=== PATIENT | male | born 1935 | race Caucasian/White ===

== ENCOUNTER → 2017-05-15 | Outpatient (CLI) | payer MEDICARE ==
[~2017-05-15] MED LIST: ASPI325T PO; ASPI81 PO; ATOR10TA15 PO; CALC500 PO; CARD180C5 PO; COMMODE 3-IN-11 MIS; CPMMACHINE; D-20TAB3 PO; DOCU1CAP39 PO; ENOX40P SQ; FISH1200 PO; LACTCAP7 PO; LIPI10TA PO; LORA0.5T PO; LORTA5 PO; MELA10CA PO; OCUVTAB4 PO; PRESCAP5 PO; RAMI2.5C PO; TAMS0.4C4 PO; TAMS0.4C67 PO; TAMS5CAP PO; VITA100020 PO; VITA20003 PO; WALKER WHEELS/F1 MIS; Z.0.COMMODE-3:1; Z.0.CPM; Z.0.WALKERFRONT; ZANTTAB9 PO
== END ==
LOC: CPRE 11:21
PROVIDERS: ATTEND Orthopaedic Surgery
DX: Z00.8 Encounter for other general examination (principal)

== ENCOUNTER 2017-05-27 06:43 | Inpatient (IN) | payer MEDICARE ==
[~2017-05-27] VITALS: Ht 180.3 cm; Wt 65.9 kg
[2017-05-27] MEDS: SODIUM CHLOR 0.9% 1000 ML INJ 1,000 ML IV SCH ×2 (00:14→12:35)
[~2017-05-27 06:43] MED LIST changes: -ASPI325T PO; -ASPI81 PO; -CALC500 PO; -CARD180C5 PO; -COMMODE 3-IN-11 MIS; -CPMMACHINE; -DOCU1CAP39 PO; -ENOX40P SQ; -LACTCAP7 PO; -LIPI10TA PO; -LORTA5 PO; -MELA10CA PO; -PRESCAP5 PO; -RAMI2.5C PO; -TAMS0.4C67 PO; -TAMS5CAP PO; -VITA100020 PO; -VITA20003 PO; -WALKER WHEELS/F1 MIS; -Z.0.COMMODE-3:1; -Z.0.CPM; -Z.0.WALKERFRONT; -ZANTTAB9 PO
[2017-05-27] MEDS ORDERED: POVIDONE IODINE 7.5% SCRUB 118 ML BOTTLE TOPICAL SCH (07:45)
[2017-05-27] MEDS ORDERED: CHLORHEXIDINE GLUCONATE 2 % 1 PACK (2 CLOTHS) TOPICAL PRN (07:45)
[2017-05-27] MEDS ORDERED: POVIDONE IODINE 5% (ANTISEPSIS KIT) 4 APPLICATIONS EACH NARE PRN (07:45)
[2017-05-27] MEDS ORDERED: LACTATED RINGER'S 1000 ML IV PRN (07:45)
[2017-05-27] MEDS ORDERED: VANCOMYCIN 1000 MG/NS 250 ML (for <70 kg) IV SCH ×2 (07:45)
[2017-05-27] MEDS ORDERED: METOPROLOL TARTRATE 25 MG TAB PO PRN (07:45)
[2017-05-27] MEDS ORDERED: SODIUM CHLORID 0.9% 500 ML IV PRN (07:45)
[2017-05-27] MEDS ORDERED: DEXAMETHASONE SOD PHOS 20 MG/5 ML VIAL IV SCH (08:00)
[2017-05-27] MEDS ORDERED: TRANEXAMIC ACID INJ 659 MG in SODIUM CHLORIDE 0.9% INJ 100 ML IV SCH ×2 (08:00→13:00)
[2017-05-27] MEDS ORDERED: ROPIVACAINE PERI-ARTICULAR INJECTION. P-ARTICULR SCH ×5 (08:00)
[2017-05-27] MEDS ORDERED: ceFAZolin 2 GM PREMIX 50 ML ONE (08:12)
[2017-05-27] MEDS ORDERED: MIDAZOLAM HCL 2 MG/2 ML VIAL ONE (08:17)
[2017-05-27] MEDS ORDERED: BUPIVACAINE LIPOSOME PF 1.3% 20 ML VIAL ONE (08:17)
[2017-05-27] MEDS ORDERED: ceFAZolin 2 GM PREMIX 50 ML IV SCH (08:30)
[2017-05-27 09:10] VITALS: PULSE 62
[2017-05-27] MEDS ORDERED: ACETAMINOPHEN 1000 MG/100 ML 100 ML IV ONE (09:12)
[2017-05-27] MEDS ORDERED: FAMOTIDINE 20 MG/2 ML VIAL ONE (09:12)
[2017-05-27] MEDS ORDERED: GENTAMICIN SULFATE 80 MG/2 ML VIAL ONE (09:28)
--- NOTE | 2017-05-27 11:42 | PD.OP ---
cc: Otto Forde MD Operative Report Date of Surgery: May 27, 2017 Preoperative Diagnosis: Right knee severe osteoarthritis Postoperative Diagnosis: Same Procedure: Right total knee arthroplasty Anesthesia: Gen. and adductor canal block Surgeon: Otto Forde It Technical Support Specialist(s): STEFANIE Varela The surgical procedure was assisted by my Advanced Registered Nurse Practitioner. My ELECTROLYSIS NEEDLE OPERATOR presence was necessary throughout this case for the manipulation and positioning of the surgical extremity. My ELECTROLYSIS NEEDLE OPERATOR was assisting me throughout the duration of this procedure. The skill set of an Advance Registered Nurse Practitioner was medically necessary to complete this procedure. During the surgical case, the distance learning technician was working at the back table and the Advance Registered Nurse Practitioner was directly assisting me. Operation and Findings: IMPLANTS: DePuy Attune: Patella: size 38. Femur, posterior stabilized size 8. Tibia, rotating platform size 7. Tibial insert, rotating platform, posterior stabilized size 5 mm thickness. ESTIMATED BLOOD LOSS: 200 cc TOURNIQUET TIME: 38 minutes at 250 mmHg pressure. JUSTIFICATION FOR PROCEDURE: The patient has end-stage osteoarthritis to the knee. There is an attached conservative measures pathway form in the chart that describes the nonoperative measures that were undertaken prior to consideration of surgical management. The patient understood the risks and benefits of surgical management. See my office notes for further details PROCEDURE: The patient was brought back to the operative theatre. Adequate anesthesia was obtained. The patient received intravenous vancomycin and Ancef. The lower extremity was prepped and draped in the usual sterile fashion.The leg was exsanguinated, the tourniquet was raised. A standard anterior incision was performed followed by medial parapatellar arthrotomy was performed. End-stage arthritis was identified. Osteotomy of the patella was performed. We drilled holes for the patella. We trialed the patella component. We placed an intramedullary guide into the distal femur. We ultimately resected 13 mm off of the distal femur in 5 degrees of valgus. The remnants of the ACL and PCL were resected. Osteotomy of the proximal tibia was performed, resecting 5 mm off of the medial side. This was done with 3 degrees of posterior slope using an extramedullary guide. The distal end of the guide was placed in the mid aspect of the ankle. The femur was sized, and four chamfer cuts were completed in 3 of external rotation. We then cut the central box in the distal femur to replace the PCL. We resected the remnants of the menisci and removed osteophytes off of the femur and tibia. We then trialed the knee. We punched the tibia for the keel, and then used standard technique to cement in components. Excess cement was removed. We trialed the knee again and the final polyethylene thickness was chosen to provide extension to 0 degrees, and flexion of 140 degrees to gravity. The ligaments were appropriately balanced. Lateral release was necessary to obtain excellent patellofemoral tracking. The tourniquet was released and adequate hemostasis was obtained. An intra- articular injection of a ropivacaine cocktail was injected. The posterior knee was inspected for excess cement, which was removed. The final polyethylene was put into position after thorough irrigation. We then closed deep fascia with a #2 Stratafix followed by skin with 2-0 Vicryl followed by son. Postop plan is to weight-bear as tolerated. DVT prophylaxis will be performed with Alie, ERIC dukes, early mobilization, and Lovenox followed by aspirin. Otto Forde MD May 27, 2017 11:42
[2017-05-27] MEDS ORDERED: BISACODYL 10 MG SUPP RECTAL PRN (11:45)
[2017-05-27] MEDS ORDERED: MORPHINE SULFATE 4 MG/ML INJ IV PUSH PRN (11:45)
[2017-05-27] MEDS ORDERED: Post-op Orders (for Pharmacy) XX ONE (11:45)
[2017-05-27] MEDS ORDERED: NALOXONE HCL 0.4 MG/ML AMP IV PUSH PRN (11:45)
[2017-05-27] MEDS ORDERED: diphenhydrAMINE HCL 50 MG/ML VIAL IV PUSH PRN (11:45)
[2017-05-27] MEDS ORDERED: ONDANSETRON HCL 4 MG/2 ML VIAL IVP PRN (11:45)
[2017-05-27] MEDS ORDERED: ALUMINUM/MAGNESIUM/SIMETH 30 ML CUP PO PRN (11:45)
[2017-05-27] MEDS ORDERED: ACETAMINOPHEN/HYDROcodone 325 MG/5 MG TAB PO PRN (11:45)
[2017-05-27] MEDS ORDERED: SUGAMMADEX SODIUM 200 MG/2 ML VIAL IV PUSH ONE (11:59)
[2017-05-27] MEDS ORDERED: GLYCOPYRROLATE 1 MG/5 ML SYRINGE IV PUSH ONE (12:00)
[2017-05-27] MEDS ORDERED: PHENYLEPH/NS 1000 MCG/10 ML SYR IV ONE (12:00)
[2017-05-27] MEDS ORDERED: LIDOCAINE HCL 1% PF 5 ML SYRINGE OTHER ONE (12:00)
[2017-05-27] MEDS ORDERED: NEOSTIGMINE 5 MG/5 ML SYRINGE IV PUSH ONE (12:00)
[2017-05-27] MEDS ORDERED: LACTATED RINGER'S 1000 ML INJ 1,000 ML IV ONE (12:00)
[2017-05-27] MEDS ORDERED: PROPOFOL 200 MG/20 ML AMP IV ONE (12:00)
[2017-05-27] MEDS ORDERED: ROCURONIUM INJ 50 MG/5 ML SYRINGE IV PUSH ONE (12:00)
[2017-05-27] MEDS ORDERED: ePHEDrine/NS 25 MG/5 ML SYRINGE IV ONE (12:00)
[2017-05-27] MEDS ORDERED: ONDANSETRON HCL 4 MG/2 ML VIAL IV ONE (12:00)
[2017-05-27] MEDS ORDERED: DO NOT ADM ANY ANTICOAGULANT DRUGS PRN (12:07)
--- NOTE | 2017-05-27 13:17 | RADRPT ---
EXAM DATE/TIME: 05/27/2017 12:34 [facility] COMPARISON: No previous studies available for comparison. INDICATIONS : Post-op right knee. MEDICAL HISTORY : None. SURGICAL HISTORY : Left knee surgery. ENCOUNTER: Initial ACUITY: 1 day PAIN SCORE: 0/10 LOCATION: Bilateral chest FINDINGS: 2 views of the right knee status post total knee arthroplasty. The hardware is intact. The osseous structures are in good alignment. Soft tissue gas is seen anteriorly. CONCLUSION: Expected postsurgical changes status post total knee arthroplasty. Yariel Mckeon MD on May 27, 2017 at 13:15 Board Certified Radiologist. This report was verified electronically.
--- NOTE | 2017-05-27 15:37 | HHI.FF ---
Face to Face Verification Diagnosis: (1) Primary localized osteoarthrosis, lower leg (2) Status post total knee replacement, right Physical Therapy Gait training, Transfer training, bed to chair Knee: Total knee Right LE Weight Bearing: WB as tolerated Right LE Range of Motion: Active ROM Nursing Nursing: Olga naqvi Dressing Changes: Do not change dressing Additional Instructions First dressing change in the office I have seen patient Gui Headley Jr Yang on 05/27/17. My clinical findings support the need for the requested home health care services because: Limited ability to care for self High risk of falls I certify that my clinical findings support that this patient is homebound because: Post-op weakness Unsteady gait/balance [place] May 27, 2017 15:37
--- NOTE | 2017-05-27 15:37 | HHI.DCPOC ---
Discharge Care Plan Diagnosis: (1) Primary localized osteoarthrosis, lower leg (2) Status post total knee replacement, right Your Health Problems Are: Difficulty with ADL Goals to Promote Your Health * To prevent worsening of your condition and complications * To maintain your health at the optimal level Directions to Meet Your Goals Take your medications as prescribed Follow your dietary instruction Follow activity as directed Keep your appointments as scheduled Take your immunizations and boosters as scheduled If your symptoms worsen call your PCP, if no PCP go to Urgent Care Center or Emergency Room Smoking is Dangerous to Your Health. Avoid second hand smoke Call the 24-hour hour crisis hotline for domestic abuse at [place] May 27, 2017 15:37
[2017-05-27] MEDS ORDERED: CPMMACHINE (15:39)
[2017-05-27] MEDS ORDERED: WALKER WHEELS/F1 MIS (15:39)
[2017-05-27] MEDS ORDERED: COMMODE 3-IN-11 MIS (15:39)
[2017-05-27 16:23] LABS: CALCIUM 8.1 MG/DL (8.5-10.1); CREATININE 1.04 MG/DL (0.60-1.30)
[2017-05-27 16:33] LABS: AUTOMATED NEUTROPHIL # 6.1 TH/MM3 (1.8-7.7); BASOPHIL % 0.1 % (0.0-2.0); HEMATOCRIT 37.3 % (39.0-51.0); LYMPH % 4.8 % (9.0-44.0); LYMPHOCYTE # 0.3 TH/MM3 (1.0-4.8); MEAN CELL VOLUME 97.2 FL (80.0-100.0); MEAN CORPUSCULAR HEMOGLOBIN 33.9 PG (27.0-34.0); MEAN CORPUSCULAR HGB CONC 34.9 % (32.0-36.0); MEAN PLATELET VOLUME 9.2 FL (7.0-11.0); MONO % 0.7 % (0.0-8.0); NEUT % 94.4 % (16.0-70.0); PLATELET COUNT 105 TH/MM3 (150-450); RED BLOOD COUNT 3.84 MIL/MM3 (4.50-5.90); RED CELL DISTRIBUTION WIDTH 13.7 % (11.6-17.2); WHITE BLOOD COUNT 6.5 TH/MM3 (4.0-11.0)
[2017-05-27] MEDS ORDERED: MAGNESIUM SULFATE 1 GM PREMIX 200 ML ONE (16:46)
[2017-05-27] MEDS: MAGNESIUM SULFAT 1 GM PREMIX 100 ML x2 bags IV SCH ×2 (16:47→17:50)
[2017-05-27 17:30] VITALS: BP 161/82; PULSE 73; RESP 18; TEMP 95.6; O2SAT 99
[2017-05-27 19:09] VITALS: PULSE 84
[2017-05-27 20:02] VITALS: PULSE 88
[2017-05-27] MEDS: TAMSULOSIN HCL 0.4 MG CAP PO SCH (20:03)
[2017-05-27] MEDS: ATORVASTATIN 10 MG TAB PO SCH (20:03)
[2017-05-27 20:35] VITALS: BP 150/67; PULSE 81; RESP 18; TEMP 96.9; O2SAT 99
[2017-05-27] MEDS ORDERED: LORazepam 0.5 MG TAB PO PRN (21:00)
[2017-05-27] MEDS: ACETAMINOPHEN/HYDROcodone 325 MG/5 MG TAB PO PRN (22:06)
[2017-05-27 23:52] VITALS: BP 121/68; PULSE 55; RESP 18; TEMP 96.7; O2SAT 98
[2017-05-28] VITALS (12 sets, daily range): BP systolic 119–153; BP diastolic 63–72; PULSE 52–101; RESP 16–18; TEMP 96.7–98.3; O2SAT 95–96
[2017-05-28] MEDS: ACETAMINOPHEN/HYDROcodone 325 MG/5 MG TAB PO PRN ×2 (03:17→09:16)
[2017-05-28 05:45] LABS: HEMOGLOBIN 10.3 GM/DL (13.0-17.0); MEAN CELL VOLUME 96.6 FL (80.0-100.0); MEAN CORPUSCULAR HEMOGLOBIN 33.2 PG (27.0-34.0); MEAN CORPUSCULAR HGB CONC 34.4 % (32.0-36.0); MEAN PLATELET VOLUME 8.9 FL (7.0-11.0); PLATELET COUNT 103 TH/MM3 (150-450); RED CELL DISTRIBUTION WIDTH 13.9 % (11.6-17.2); WHITE BLOOD COUNT 11.6 TH/MM3 (4.0-11.0)
[2017-05-28] MEDS: SODIUM CHLOR 0.9% 1000 ML INJ 1,000 ML IV SCH ×3 (07:39→22:50)
[2017-05-28] MEDS ORDERED: DEXAMETHASONE SOD PHOS 20 MG/5 ML VIAL IV ONE (07:45)
--- NOTE | 2017-05-28 08:04 | EKG ---
Date Performed: 05/27/2017 Time Performed: 15:37:49 PTAGE: 81 years EKG: Sinus rhythm WITH FREQUENT VENTRICULAR PREMATURE COMPLEXES ABNORMAL RHYTHM ECG NO PREVIOUS TRACING DOCTOR: Marion Saucedo Interpretating Date/Time 05/28/2017 08:01:54
[2017-05-28] MEDS: MAGNESIUM HYDROXIDE SUSP 30 ML CUP PO PRN (08:18)
[2017-05-28] MEDS ORDERED: METOPROLOL TARTRATE 25 MG TAB PO ONE (10:10)
[2017-05-28] MEDS ORDERED: PILL SPLITTER OTHER PRN (10:15)
[2017-05-28] MEDS ORDERED: ENOXAPARIN SODIUM 40 MG/0.4 ML SYRINGE SQ SCH (11:00)
--- NOTE | 2017-05-28 11:30 | PD.CONS ---
HPI Service [facility] Hospitalists Consult Requested By Dr. Forde. Reason for Consult New onset of frequent PVCs. Primary Care Physician Clive Pandya M.D. Diagnoses: History of Present Illness This is an 81-year-old male with past medical history significant for osteoarthritis with history of previous left knee total replacement, BPH, hiatal hernia, lumbar stenosis who presents to [facility] for elective right total knee arthroplasty. The patient underwent a right total knee arthroplasty on May 27, 2017. I am being consulted since the patient has new frequent PVCs and also reported bigeminy and a short run of nonsustained V. tach. The patient denies any chest pain, shortness of breath, palpitations, dizziness, diaphoresis at the moment of this interview. States that knee pain is well controlled. Patient also denies nausea vomiting or abdominal pain. Review of Systems As per HPI, other systems reviewed by me and negative. Past Family Social History Allergies: Coded Allergies: penicillin G (Unverified Allergy, Severe, RASH, 05/15/17) Past Medical History 1. BPH. 2. Lumbar stenosis. 3. Hiatal hernia. 4. Osteoarthritis. Past Surgical History 1. Left knee replacement on June 13, 2015. Reported Medications Reported Meds & Active Scripts Active Walker with Front Wheels (Device) 1 Mis Mis Ea .XX DIRECTED CPM-Continuous Passive Motion Machine 1 Ea Device Ea .XX DIRECTED Commode 3-in-1 (Device) 1 Mis Mis Ea .XX DIRECTED Reported Fish Oil 1200 mg ([place]-3 Fatty Acids) 360 Mg-1,200 Mg Cap 1 Tab PO DAILY Tamsulosin (Tamsulosin HCl) 0.4 Mg Cap 0.4 Mg PO HS Preservision Areds (Multiple Vitamins W/ Minerals) 1 Tab 1 Tab PO DAILY Lorazepam 0.5 Mg Tab 0.5 Mg PO HS PRN D-2000 Maximum Strength (Cholecalciferol) 2,000 Unit Tab 2,000 Units PO DAILY Atorvastatin (Atorvastatin Calcium) 10 Mg Tab 10 Mg PO HS Active Ordered Medications Current Medications Medications (Trade) Dose Ordered Sig/Fili Route Start Time Stop Time Status Last Admin Lactated Ringer's 1,000 ml @ 30 mls/hr Q24H PRN IV 05/27/17 07:45 05/30/17 07:44 05/27/17 07:41 Sodium Chloride 500 ml @ 30 mls/hr [id number] PRN IV 05/27/17 07:45 05/30/17 07:44 (Lopressor) 25 mg LOGGING OPERATIONS INSPECTOR PRN PO 05/27/17 07:45 05/30/17 07:44 (Betadine 5% Antisepsis Kit) 1 applic LOGGING OPERATIONS INSPECTOR PRN EACH NARE 05/27/17 07:45 05/30/17 07:44 05/27/17 07:41 (Chlorhexidine 2% Cloth) 3 pack LOGGING OPERATIONS INSPECTOR PRN TOPICAL 05/27/17 07:45 05/30/17 07:44 05/27/17 07:41 (Betadine 7.5% Scrub) 1 applic ONCE TOPICAL 05/27/17 07:45 05/30/17 07:44 Vancomycin HCl 1000 mg/Sodium Chloride 250 ml @ 250 mls/hr LOGGING OPERATIONS INSPECTOR IV 05/27/17 07:45 05/30/17 07:44 05/27/17 09:34 Cefazolin Sodium/ Dextrose 50 ml @ 100 mls/hr LOGGING OPERATIONS INSPECTOR IV 05/27/17 08:30 05/30/17 08:29 05/27/17 10:05 (Lipitor) 10 mg HS PO 05/27/17 21:00 05/27/17 20:03 (Ativan) 0.5 mg HS PRN PO 05/27/17 21:00 (Flomax) 0.4 mg HS PO 05/27/17 21:00 05/27/17 20:03 Sodium Chloride 1,000 ml @ 100 mls/hr Q10H IV 05/27/17 11:39 05/27/17 00:14 (Lovenox Inj) 40 mg Q24H SQ 05/28/17 11:00 06/06/17 11:01 05/28/17 10:31 (Wilson 5-325 Mg) 1 tab Q4H PRN PO 05/27/17 11:45 05/28/17 09:16 (Wilson 5-325 Mg) 2 tab Q4H PRN PO 05/27/17 11:45 (Theragran M Tab) 1 tab BID PO 05/28/17 21:00 07/27/17 20:59 (Zofran Inj) 4 mg Q6H PRN IVP 05/27/17 11:45 (Colace) 100 mg BID PO 05/28/17 21:00 (Mag-Al Plus Susp Liq) 30 ml Q6H PRN PO 05/27/17 11:45 (Ambien) 5 mg HS PRN PO 05/27/17 21:00 (Dulcolax Supp) 10 mg DAILY PRN RECTAL 05/27/17 11:45 (Milk Of Magnesia Liq) 30 ml DAILY PRN PO 05/27/17 11:45 05/28/17 08:18 (Narcan Inj) 0.4 mg UNSCH PRN IV PUSH 05/27/17 11:45 (Benadryl Inj) 25 mg Q6H PRN IV PUSH 05/27/17 11:45 (Morphine Inj) 2 mg Q3H PRN IV PUSH 05/27/17 11:45 (Pill Splitter) 1 ea UNSCH PRN OTHER 05/28/17 10:15 Family History Patient states that his father had 3 MIs between the age of 60 and 75. However , he states that he from complications due to diabetes and gangrene. Social History The patient is a former smoker he quit smoking cigarettes many years ago. The patient denies alcohol intake. Patient also denies illicit drug use. Physical Exam Vital Signs Vital Signs Date Time Temp Pulse Resp B/P (MAP) Pulse Ox O2 Delivery O2 Flow Rate FiO2 05/28/17 10:45 88 05/28/17 08:56 101 05/28/17 08:00 97.8 65 18 119/66 (83) 96 05/28/17 08:00 97 05/28/17 04:04 18 05/28/17 03:25 97.2 61 18 153/72 (99) 95 05/28/17 00:03 91 05/27/17 23:52 96.7 55 18 121/68 (85) 98 05/27/17 22:02 Room Air 05/27/17 20:35 96.9 81 18 150/67 (94) 99 05/27/17 20:02 88 05/27/17 20:02 88 05/27/17 19:09 84 05/27/17 19:09 84 05/27/17 17:30 95.6 73 18 161/82 (108) 99 05/27/17 17:00 97.5 82 14 144/70 (94) 98 Room Air 05/27/17 16:00 92 14 165/75 (105) 97 05/27/17 15:00 93 18 139/64 (89) 95 05/27/17 14:00 73 21 143/63 (89) 95 05/27/17 13:30 76 18 142/69 (93) 96 05/27/17 13:25 97.5 05/27/17 13:25 97.5 05/27/17 13:15 69 15 133/73 (93) 93 05/27/17 13:00 69 11 133/71 (91) 94 05/27/17 12:45 66 11 133/68 (89) 95 05/27/17 12:30 71 15 138/67 (90) 97 05/27/17 12:15 66 10 133/72 (92) 99 05/27/17 12:11 67 13 148/78 (101) 95 Simple Mask 6 Physical Exam GENERAL: This is a well-nourished, well-developed patient, in no apparent distress. SKIN: No rashes, ecchymoses or lesions. Cool and dry. HEAD: Atraumatic. Normocephalic. No temporal or scalp tenderness. EYES: Pupils equal round and reactive. Extraocular motions intact. No scleral icterus. No injection or drainage. ENT: Nose without bleeding, purulent drainage or septal hematoma. Throat without erythema, tonsillar hypertrophy or exudate. Uvula midline. Airway patent. NECK: Trachea midline. No JVD or lymphadenopathy. Supple, nontender, no meningeal signs. CARDIOVASCULAR: Regular rate and rhythm without murmurs, gallops, or rubs. RESPIRATORY: Clear to auscultation. Breath sounds equal bilaterally. No wheezes , rales, or rhonchi. GASTROINTESTINAL: Abdomen soft, non-tender, nondistended. No hepato-splenomegaly , or palpable masses. No guarding. MUSCULOSKELETAL: Extremities without clubbing, cyanosis, or edema. No calf tenderness. Negative Homans sign bilaterally. Dressing is C/D/I. 2+ pedal pulse. NEUROLOGICAL: Awake and alert. Cranial nerves II through XII intact. Motor and sensory grossly within normal limits. Five out of 5 muscle strength in all muscle groups. Normal speech. Laboratory Laboratory Tests Test 05/27/17 15:40 05/28/17 04:41 05/28/17 10:37 White Blood Count 6.5 11.6 Red Blood Count 3.84 3.10 Hemoglobin 13.0 10.3 Hematocrit 37.3 30.0 Mean Corpuscular Volume 97.2 96.6 Mean Corpuscular Hemoglobin 33.9 33.2 Mean Corpuscular Hemoglobin Concent 34.9 34.4 Red Cell Distribution Width 13.7 13.9 Platelet Count 105 103 Mean Platelet Volume 9.2 8.9 Neutrophils (%) (Auto) 94.4 Lymphocytes (%) (Auto) 4.8 Monocytes (%) (Auto) 0.7 Eosinophils (%) (Auto) 0.0 Basophils (%) (Auto) 0.1 Neutrophils # (Auto) 6.1 Lymphocytes # (Auto) 0.3 Monocytes # (Auto) 0.0 Eosinophils # (Auto) 0.0 Basophils # (Auto) 0.0 CBC Comment DIFF FINAL Differential Comment Blood Urea Nitrogen 16 Creatinine 1.04 Random Glucose 239 Calcium Level 8.1 Sodium Level 139 Potassium Level 4.1 Chloride Level 105 Carbon Dioxide Level 27.0 Anion Gap 7 Estimat Glomerular Filtration Rate 69 Magnesium Level 1.8 Result Diagram: 05/28/17 0441 05/27/17 1540 Imaging Last Impressions Knee X-Ray 05/27/17 1139 Signed Impressions: Service Date/Time: Saturday, May 27, 2017 12:34 - CONCLUSION: Expected postsurgical changes status post total knee arthroplasty. Yariel Mckeon MD Assessment and Plan Problem List: (1) Status post total knee replacement, right ICD Code: Z96.651 - Presence of right artificial knee joint Plan: Management as per orthopedic surgery. (2) Cardiac dysrhythmia ICD Code: I49.9 - Cardiac arrhythmia, unspecified Plan: Review of the EKG on admission which showed sinus rhythm with frequent PVCs with a ventricular rate of 94. QTc 432. Telemetry reviewed by me shows bigeminy and a short run of nonsustained V. tach. The patient is asymptomatic. Consult cardiology. Check 2D echocardiogram. Check TSH and electrolytes. (3) BPH (benign prostatic hyperplasia) ICD Code: N40.0 - Benign prostatic hyperplasia without lower urinary tract symptoms Plan: Patient states he had an episode of urinary retention yesterday after surgical procedure. States this has resolved. Continue tamsulosin 0.4 mg p.o. daily. (4) Hyperlipidemia ICD Code: E78.5 - Hyperlipidemia, unspecified Status: Chronic Plan: Continue statin. (5) Hyperglycemia ICD Code: R73.9 - Hyperglycemia, unspecified Plan: Blood sugars are severely elevated. Suspect diabetes. Will check hemoglobin A1c. Place the patient on SSI with insulin NovoLog. (6) MARGARITO (acute kidney injury) ICD Code: N17.9 - Acute kidney failure, unspecified Plan: Creatinine on presentation 1.04. Creatinine elevated to 1.[address] the patient IV fluids, check renal ultrasound and a postvoid residual volume with bladder scan. Monitor BUN and creatinine, history I's and O's, avoid nephrotoxins. Assessment and Plan DVT prophylaxis: Lovenox 40 mg subcu daily as per orthopedic surgery. The patient is not medically clear to be discharged. Code Status Full code Discussed Condition With Patient, RN. Problem Qualifiers (1) Cardiac dysrhythmia: Qualified Codes: I49.8 - Other specified cardiac arrhythmias (2) BPH (benign prostatic hyperplasia): Qualified Codes: N40.0 - Benign prostatic hyperplasia without lower urinary tract symptoms (3) Hyperlipidemia: Qualified Codes: E78.5 - Hyperlipidemia, unspecified Nader Gray MD May 28, 2017 11:30
[2017-05-28 11:44] LABS: BICARBONATE 27.6 MEQ/L (21.0-32.0); CALCIUM 8.1 MG/DL (8.5-10.1); CREATININE 1.36 MG/DL (0.60-1.30); MAGNESIUM 2.3 MG/DL (1.5-2.5); PHOSPHORUS 2.9 MG/DL (2.5-4.9)
--- NOTE | 2017-05-28 11:48 | PD.ORT.PN ---
Subjective Post Op Day #: 1 Subjective Remarks Patient is resting in bed using his CPM. Patient reports minimal pain to the right knee. Patient states he has had some cardiac irregular beats and spoke with the hospitalist about it. Patient is scheduled to have some further testing today to better evaluate the heart. Patient currently on Tele. Patient denies CP or SOB currently. Objective Vitals Vital Signs Date Time Temp Pulse Resp B/P (MAP) Pulse Ox O2 Delivery O2 Flow Rate FiO2 05/28/17 10:45 88 05/28/17 08:56 101 05/28/17 08:00 97.8 65 18 119/66 (83) 96 05/28/17 08:00 97 05/28/17 04:04 18 05/28/17 03:25 97.2 61 18 153/72 (99) 95 05/28/17 00:03 91 05/27/17 23:52 96.7 55 18 121/68 (85) 98 05/27/17 22:02 Room Air 05/27/17 20:35 96.9 81 18 150/67 (94) 99 05/27/17 20:02 88 05/27/17 20:02 88 05/27/17 19:09 84 05/27/17 19:09 84 05/27/17 17:30 95.6 73 18 161/82 (108) 99 05/27/17 17:00 97.5 82 14 144/70 (94) 98 Room Air 05/27/17 16:00 92 14 165/75 (105) 97 05/27/17 15:00 93 18 139/64 (89) 95 05/27/17 14:00 73 21 143/63 (89) 95 05/27/17 13:30 76 18 142/69 (93) 96 05/27/17 13:25 97.5 05/27/17 13:25 97.5 05/27/17 13:15 69 15 133/73 (93) 93 05/27/17 13:00 69 11 133/71 (91) 94 05/27/17 12:45 66 11 133/68 (89) 95 05/27/17 12:30 71 15 138/67 (90) 97 05/27/17 12:15 66 10 133/72 (92) 99 05/27/17 12:11 67 13 148/78 (101) 95 Simple Mask 6 I/O 05/27/17 05/27/17 05/27/17 05/28/17 05/28/17 05/28/17 07:00 15:00 23:00 07:00 15:00 23:00 Intake Total 2100 ml 1120 ml 460 ml Output Total 500 ml 1100 ml Balance 1600 ml 20 ml 460 ml Intake Oral 400 ml 920 ml 360 ml IV Total 200 ml 100 ml Other 1700 ml Output Urine Total 300 ml 1100 ml Estimated Blood Loss 200 ml # Voids 3 # Bowel Movements 0 0 Result Diagram: 05/28/17 0441 05/27/17 1540 Procedures Right TKA Objective Remarks Dressing is C/D/I. EHL/TA/G intact. 2+ pedal pulse. Calf is soft and nontender. + SILT. Patient on cardiac monitory. Patient has had runs of trigeminy. Assessment & Plan Ortho Post Op Day #: 1 Problem List: Assessment and Plan POD #1: Right TKA 1. WBAT RLE 2. Lovenox followed by ASA for DVT prophylaxis 3. Ice to the right knee PRN 4. Stable for discharge once medically cleared and cleared by cardiology. Patient to have echo and additional labs. Patient to see park manager. Patient will require at least one more night of observation. 5. F/U in the office with Dr. Forde or STEFANIE Neil as previously scheduled. [place] May 28, 2017 11:48
[2017-05-28] MEDS ORDERED: DEXTROSE 50% IN WATER 50 ML VIAL(D50) IV PUSH PRN (13:30)
[2017-05-28] MEDS ORDERED: GLUCAGON 1 MG/ML VIAL OTHER PRN (13:30)
--- NOTE | 2017-05-28 15:22 | RADRPT ---
EXAM DATE/TIME: 05/28/2017 14:33 [facility] COMPARISON: No previous studies available for comparison. INDICATIONS : Increased Bun and Creatinine. Left flank pain. MEDICAL HISTORY : Renal disease. SURGICAL HISTORY : Umbilical hernia. Appendectomy. Left partial knee. Left rotator cuff repair. Right knee replaceme nt. ENCOUNTER: Initial ACUITY: 1 day PAIN SCORE: 04/15 LOCATION: Bilateral flank MEASUREMENTS: RIGHT KIDNEY: 11.7 x 4.9 x 6.3 cm LEFT KIDNEY: 12.1 x 5.0 x 6.3 cm FINDINGS: RIGHT KIDNEY: There is moderate dilation of the collecting system and extrarenal pelvis. LEFT KIDNEY: There is moderate dilation of the collecting system and extrarenal pelvis. Dominant cyst in the uppe r pole measuring 5.0 x 4.1 cm. BLADDER: Markedly distended urinary bladder. Prevoid volume is estimated at 604 mL and post void volume is es timated at 641 mL. CONCLUSION: 1. Dilation of the collecting system bilaterally suggesting moderate bilateral hydronephrosis. 2. Significant postvoid residual with no change in bladder volume pre-and postvoid. Yariel Mckeon MD on May 28, 2017 at 15:18 Board Certified Radiologist. This report was verified electronically.
[2017-05-28] MEDS: INSULIN ASPART SUPPLEMENTAL SCALE SQ SCH ×2 (17:05→21:17)
--- NOTE | 2017-05-28 19:09 | ECHRPT ---
Indication: pvc's CONCLUSIONS Normal left ventricular size. The left ventricular systolic function is moderately reduced with an estimated ejection fraction in the range of 40-45%. mild to mod mitral valve regurgitation. There is mild to mod tricuspid valve regurgitation. BP: / HR: Rhythm: MEASUREMENTS (Male / Female) Normal Values Technical Quality:Good 2D ECHO LV Diastolic Diameter PLAX 5.4 cm 4.2 - 5.9 / 3.9 - 5.3 cm LV Systolic Diameter PLAX 4.5 cm IVS Diastolic Thickness 1.3 cm 0.6 - 1.0 / 0.6 - 0.9 cm LVPW Diastolic Thickness 1.1 cm 0.6 - 1.0 / 0.6 - 0.9 cm LV Relative Wall Thickness 0.4 RV Internal Dim ED PLAX 2.8 cm M-MODE Aortic Root Diameter MM 3.3 cm LA Systolic Diameter MM 3.5 cm LA Ao Ratio MM 1.1 AV Cusp Separation MM 2.1 cm DOPPLER TR Peak Velocity 259.0 cm/s TR Peak Gradient 26.8 mmHg Right Atrial Pressure 10.0 mmHg Pulmonary Artery Systolic Pressu 36.8 mmHg Right Ventricular Systolic Press 36.8 mmHg FINDINGS LEFT VENTRICLE Normal left ventricular size. The left ventricular systolic function is moderately reduced with an estimated ejection fraction in the range of 40-45%. RIGHT VENTRICLE Normal right ventricular size and systolic function. LEFT ATRIUM The left atrial size is normal. RIGHT ATRIUM The right atrial size is normal. ATRIAL SEPTUM Normal atrial septal thickness without atrial level shunting by limited color doppler interrogation. AORTA The aortic root and proximal ascending aorta are normal in size on limited imaging. MITRAL VALVE Structurally normal mitral valve. [id number] mitral valve regurgitation. AORTIC VALVE Trileaflet aortic valve. No aortic valve stenosis or regurgitation. TRICUSPID VALVE Structurally normal tricuspid valve. There is mild tricuspid valve regurgitation. PULMONARY VALVE No pulmonary valve regurgitation or stenosis. VESSELS The inferior vena cava is normal in size. PERICARDIUM No pericardial effusion. Richar Campbell MD, FACC, [facility] (Electronically Signed) Final Date:28 May 2017 19:08
[2017-05-28] MEDS: MULTIVITAMINS/MINERALS THERAPEUTIC TAB PO SCH (21:16)
[2017-05-28] MEDS: ATORVASTATIN 10 MG TAB PO SCH (21:16)
[2017-05-28] MEDS: DOCUSATE SODIUM 100 MG CAP PO SCH (21:16)
[2017-05-28] MEDS: TAMSULOSIN HCL 0.4 MG CAP PO SCH (21:16)
[2017-05-29] VITALS (23 sets, daily range): BP systolic 107–152; BP diastolic 48–72; PULSE 41–102; RESP 17–18; TEMP 97.4–98.6; O2SAT 94–98
[2017-05-29 07:01] LABS: HEMATOCRIT 24.3 % (39.0-51.0); HEMOGLOBIN 8.5 GM/DL (13.0-17.0); MEAN CELL VOLUME 98.1 FL (80.0-100.0); MEAN CORPUSCULAR HEMOGLOBIN 34.3 PG (27.0-34.0); MEAN PLATELET VOLUME 9.3 FL (7.0-11.0); PLATELET COUNT 78 TH/MM3 (150-450); RED BLOOD COUNT 2.48 MIL/MM3 (4.50-5.90); RED CELL DISTRIBUTION WIDTH 14.2 % (11.6-17.2); WHITE BLOOD COUNT 7.9 TH/MM3 (4.0-11.0)
--- NOTE | 2017-05-29 07:02 | MB ---
cc: KENRICK HORNE M.D. DATE OF CONSULTATION 05/28/2017 REASON FOR CONSULTATION Gui is a very pleasant 81 year-old gentleman with a history of hypertension, otherwise no significant past cardiovascular history. He underwent knee surgery with Dr. Johnson on May 27. Postoperatively, he was found to have frequent PVCs and runs of wide complex tachycardia. The patient is completely asymptomatic. Denies any chest pain, fever, chills, cough, GI/ bleeding, PND, orthopnea, syncope or dizziness. He underwent right total knee arthroplasty May 30, 2017. PAST MEDICAL HISTORY past medical history includes: 1. BPH 2. Lumbar stenosis 3. Hiatal hernia 4. Osteoarthritis 5. Left knee replacement June 13, 2015 MEDICATIONS PRIOR TO ADMISSION 1. Fish oil 2. Tamsulosin 3. PreserVision 4. Lorazepam 5. D-2000 6. Atorvastatin 10 at bedtime Medications in the hospital: 1. Docusate 100 b.i.d. 2. Multivitamins 3. Lovenox 40 subcu q.24 h 4. Atorvastatin 10 at bedtime 5. He was given one dose of Metoprolol 12.5. PHYSICAL EXAMINATION Pulse ranging between 52 and 101, blood pressure 133/63, respiratory rate 16, temperature 96.7, sats 95% on room air. GENERAL: He is alert and oriented x3 in no distress. NECK: Supple. No JVD. No bruit. CARDIOVASCULAR: S1, S2. No murmurs, rubs or gallops. LUNGS: Clear to auscultation bilaterally. ABDOMEN: Soft, nontender, nondistended with positive bowel sounds. EXTREMITIES: No extremity edema. LABORATORY DATA White count 1.6, hemoglobin of 10.3, hematocrit 30.0, platelet count 103. Sodium 139, potassium 4.1, chloride 105, bicarb 27.0, BUN 60 creatinine 1.04, magnesium is 1.8 corrected to 2.3. TSH is 0.592. Troponin is 0.03. The renal ultrasound done showed dilation of the collecting system bilaterally suggesting moderate bilateral hydronephrosis, significant post residual with no change in bladder volume pre and postvoid. EKG from May 27 shows normal sinus rhythm at 94 beats per minute with frequent PVCs, ventricular trigeminy, corrected QT intervals, 432 milliseconds. FINAL DIAGNOSES 1. Nonsustained V-tach 2. Ventricular bigeminy 3. Knee replacement postop day #2 4. Bladder outlet obstruction 5. Anemia 6. Elevated white count DISCUSSION At the this point in time, I recommend transfer to the CVICU or CV step-down unit. I have explained this to the patient's nurse and to the patient. The patient was given Metoprolol 12.5 initially and has not been given again as she had a heart rate of 52 beats per minute. Would also recommend doing a 2-D echo and telemetry monitoring. MD JENNA Lauren/TRACIE /5:44 PM /6:34 AM
[2017-05-29] MEDS: INSULIN ASPART SUPPLEMENTAL SCALE SQ SCH ×4 (08:00→20:34)
[2017-05-29] MEDS: DOCUSATE SODIUM 100 MG CAP PO SCH ×2 (09:37→20:33)
[2017-05-29] MEDS: MULTIVITAMINS/MINERALS THERAPEUTIC TAB PO SCH ×2 (09:37→20:33)
[2017-05-29] MEDS ORDERED: HEPARIN-NS/PF FLUSH BAG 1,000 ML IV FLUSH ONE (11:45)
[2017-05-29] MEDS ORDERED: HEPARIN SODIUM - IV 10,000 UNITS/10 ML VIAL ONE ×2 (11:45→12:58)
[2017-05-29] MEDS ORDERED: MIDAZOLAM HCL 2 MG/2 ML VIAL ONE (12:28)
--- NOTE | 2017-05-29 13:23 | CATHPROC ---
[employer] HIS Report Study Information Study Number Admission Scheduled Start Study Start [id number] May 27 2017 6:43AM 05/29/2017 May 29 2017 11:54AM [facility] Cardiac Catheterization Admit Source Facility Department Other [facility] - Game Artist Physician and Clinical Staff Initial MD Campbell, [address] Guard Na Newell,RN Recorder Bharath OLSEN, Reed Suárez, Carlito,RT(R) Procedures Performed Procedure Location (Site) Vessel Name Coronary Angiograms LCA Left Coronary Coronary Angiograms RCA Right Coronary LV Gram-hand inj. LV LV Ventricle Equipment Time Animal Caretaker Supervisor Description Size Mfg Part Number Used/Scraped CATHETER, FR5 SWAN JOSR 11:58 Thanx FR 5 [id number] *[id number] Used MONITOR TRANSDUCER, TRUWAVE [id number] 11:58 Thanx * Used W/STOCKCOCK *[id number] [id number] *[id number] [id number] *[id number] 11:58 MEDLINE IND[employer] PACK, CCL CUSTOM * Used *[id number] 11:58 [employer] PACER PEN, SKIN DUAL W/ RULER * Used *[id number] 11:58 DoubleRecall SHEATH, FR5.5 PRELUDE 11CM FR 5.5 Used [id number] 12:19 DoubleRecall SYRINGE, CONTROL 10ML 10ML Used *[id number] 11:58 DoubleRecall WIRE, 3MMJ .035 180CM 180CM Used *[id number] 11:58 NAMIC MANIFOLD, 4 PORT * Used *[id number] 11:58 NYCOMED OMNIPAQUE, 350 MG, 150ML 150ML [id number] Used [id number] 11:58 [employer] MEDICAL BLANKET,WARM AIR CCL * Used *[id number] 11:58 TERUMPeerReach MEDICAL SHEATH, FR4 TERUMO (10CM) FR 4 Used *[id number] History: Current Medications Medication Dosage/Unit Route Frequency Last Date/Time Taken Statins (any) 05/29/2017 LOPRESSOR 05/29/2017 History: Allergies Allergy Reaction penicillin G History: Risk Factors Family History of Hypertension Dyslipidemia Previous RI Previous Heart Failure Premature CAD Yes Yes Yes No No Prior Valve Prior PCI Prior CABG Surgery No No No Cerebrovascular Peripheral Artery Chronic Lung On Dialysis Diabetes Diabetes Therapy Disease Disease Disease No No No No Yes Oral History: Stress Tests Stress or Imaging Studies Performed No History: Other Current Smoker No Labs Hgb (g/dl) Hct (%) WBC (l/cumm) 11.60-17.00 35.00-51.00 4.00-11.00 8.5 24.3 7.9 Glucose (mg/dl) BUN (mg/dl) Creatinine (mg/dl) BUN:Creatinine (1:x) 74.00-106.00 7.00-18.00 0.50-1.30 10.00-20.00 160 22 1.4 15.7 Troponin I (ng/ml) CPK-MB (ng/ML) 0.02-0.05 0.50-3.60 0.03 Not Drawn Medication Medication Total Dose (Bolus/Oral) Medication Total Dosage/Unit 1% XYLOCAINE 20 mL Medications (Bolus/Oral) Medication Time Given Dosage/Unit Administered By Reason 1% XYLOCAINE 05/29/2017 12:47:25 PM 20 mL ShannanRichar 20 mL 1% XYLOCAINE given in lab by Rihcar Campbell in Right Groin via Subcutaneous. Initial Case Assessment Cardiovascular HR 82 Edema Present Skin color Skin None Normal Warm Dry Circulatory - Right Pulses Posterior Tibial Femoral 1 2 Scale (0,1,2,3,4,d) Circulatory - Left Pulses Posterior Tibial Femoral 1 2 Scale (0,1,2,3,4,d) Neurological State Oriented to time-place- Alert Moves all extremities person Respiration - General Respiration Rate SpO2 (%) (B/min) 14 97 Chronological Log Time Study Chronological Log 11:58:59 Patient arrived via Bed. 12:06:55 Patient Name, D.O.B, / Armband Verified By R.N. 12:07:08 Patient has been NPO for More than 6Hrs. 12:07:54 Patient has been NPO for More than 6Hrs. 12:07:56 Skin Breakdown- none reported 12:08:09 Patient Warmer Placed on the Table. 12:08:15 Pradeep Prominences Protected 12:08:22 History and physical on the chart or being dictated. 12:09:45 Consent signed by the physician and the patient and verified by the Game Artist staff. Vitals capture started with the following parameters, Patient=Adult, Interval=5 min, Initial P clmgrku=340 mmHg, 12:09:51 Deflation Rate=5 mmHg, Cuff placed on Right Ankle 12:10:26 HR=82 bpm, SWFM=808/87 mmhg, SpO2=98 %, Pain=0, Jacinto=10, García=2 Assessment: Initial Case, HR=82 BPM, Edema=None, Color=Normal, Skin = Warm, Dry Right Pulses: Post Tib=1, Femoral=2 12:15:05 Left Pulses: Post Tib=1, Femoral=2 Neurological: State=Alert, Ox3, DEVLIN Respiration: Resp=14 B/min, SpO2=97 % 12:15:29 HR=82 bpm, NTTT=977/71 mmhg, SpO2=97.0 %, Resp=11 B/min, García=2 12:15:56 Bilateral groins prepped with 2% chlorhexidine, and draped after a 3 min. waiting time. 12:16:20 A # 20 IV was noted in the Hand (left). Grade = 0 12:17:27 Reference ECG taken 12:17:34 MD paged 12:20:13 Pressure channel 1 zeroed. 12:20:57 HR=80 bpm, TQKN=708/69 mmhg, SpO2=95.0 %, Resp=12 B/min, García=2 12:25:27 HR=83 bpm, AEKK=197/80 mmhg, SpO2=98.0 %, Resp=10 B/min, García=2 12:30:30 HR=81 bpm, TFZT=593/70 mmhg, SpO2=94.0 %, Resp=11 B/min, García=2 12:35:29 HR=80 bpm, QAXN=378/75 mmhg, SpO2=96.0 %, Resp=11 B/min, García=2 12:40:28 HR=78 bpm, QXFD=713/74 mmhg, SpO2=96.0 %, Resp=12 B/min 12:43:54 MD arrived. 12:44:14 Immediate Presedation assesment performed by physician. 12:45:31 HR=85 bpm, HCZW=667/72 mmhg, SpO2=95.0 %, Resp=11 B/min, García=2 Time Out. Correct patient, correct procedure, correct physician, power injector loaded, or not loaded with contrast with 12:47:11 surgical team present. Time Out Concurred by MD and individual staff in procedure. 12:47:22 Case Start 12:47:25 20 mL 1% XYLOCAINE given in lab by Richar Campbell in Right Groin via Subcutaneous. 12:48:26 Access site was Right Femoral Artery. 12:48:41 A SHEATH, FR4 TERUMO (10CM) FR 4 was advanced into the Fem Art (right) using the Modified S eldinger technique. 12:48:54 Saturation: Site=Ao (Aorta) , O2=95.4 %, Hgb=8.5 gm/dl, Condition=Condition 1. Used in calc ulation. A SHEATH, FR5.5 PRELUDE 11CM FR 5.5 was advanced into the Fem Vein (right) using the Modified S eldinger 12:49:54 technique. 12:50:11 A CATHETER, FR5 SWAN JOSR MONITOR FR 5 was inserted via Fem Vein (right) Recorded Pressure: PCW, HR=86, Condition=Condition 1 12:51:04 (Pulmonary Capillary Wedge) PCW 2020/12 12:51:05 HR=86 bpm, XGAN=069/79 mmhg, SpO2=97.0 %, Resp=18 B/min, García=2 Recorded Pressure: MPA, HR=79, Condition=Condition 1 12:51:29 (Main Pulmonary Artery) MPA 12:52:05 Saturation: Site=PA (Pulmonary Artery) , O2=72.7 %, Hgb=8.5 gm/dl, Condition=Condition 1. U sed in calculation. Recorded Pressure: RV, HR=87, Condition=Condition 1 12:52:35 (Right Ventricle) RV 34/-2/9 Recorded Pressure: RA, HR=85, Condition=Condition 1 12:52:54 (Right Atrium) RA 7/4/2 12:54:31 A JR 4.0 INFINITI CATHETER FR 4 was advanced over a wire. contrast was used for injections. Recorded Pressure: LV, HR=92, Condition=Condition 1 12:54:46 (Left Ventricle) LV 143/4/21 Recorded Pressure: LV, Ao, HR=93, Condition=Condition 1 12:55:12 (Left Ventricle) LV 130/7/38, (Aorta) Ao 121/63/89 12:55:31 Boyds Josr Catheter Removed 12:55:33 HR=87 bpm, IHFL=430/73 mmhg, SpO2=96.0 %, Resp=17 B/min, García=2 12:55:38 Saturation: Site=RA (Right Atrium) , O2=71.7 %, Hgb=8.5 gm/dl, Condition=Condition 1. Used in calculation. 12:56:28 The LV was manually injected with 10 cc's and visualized. OMNIPAQUE, 350 MG, 150ML 150ML us ed. 12:56:38 The RCA was injected and visualized at various angles. OMNIPAQUE, 350 MG, 150ML 150ML used . After removing the current catheter a JL 4.0 INFINITI CATHETER FR 4 was advanced over a WIRE, 3 MMJ .035 180CM 12:57:01 180CM. 12:57:46 The LCA was injected and visualized at various angles. OMNIPAQUE, 350 MG, 150ML 150ML used . 13:00:30 HR=96 bpm, XXNH=089/80 mmhg, SpO2=94.0 %, Resp=13 B/min, García=2 After removing the current catheter a JR 4.0 INFINITI CATHETER FR 4 was advanced over a WIRE, 3MMJ .035 180CM 13:00:52 180CM. 13:02:48 Case End 13:04:30 Arterial Sheath removed; pressure applied to access site. 13:06:08 HR=94 bpm, SGKC=119/72 mmhg, SpO2=96.0 %, Resp=14 B/min, García=2 13:10:14 Venous Sheath removed; pressure applied to access site. 13:10:32 HR=94 bpm, MXUL=989/87 mmhg, SpO2=96.0 %, Resp=17 B/min, García=2 13:15:34 HR=93 bpm, UUUE=306/76 mmhg, SpO2=95.0 %, Resp=15 B/min, García=2 13:19:13 Sterile dressing applied to site 13:19:15 No case complications noted. 13:19:55 [facility] called. Spoke to Anita 13:20:11 Vitals capture stopped. 13:20:20 Bedside Report will be given. 13:23:27 A Left and Right Heart Cath was performed. 13:23:33 Patient moved to stretcher End Study - Contrast Media Used In Study Contrast Total Opened (mL) Total Used (mL) Total Wasted (mL) Omnipaque 100 65 35 End Study - Maximum Contrast Load Max Contrast Load (mL) 235.1 End Study - Radiation Exposure Fluoro Time (minutes) 2.4 End Study - Patient Disposition Complications Transferred To Interventional Outcome No Telemetry Bed No attempt made
[2017-05-29] MEDS ORDERED: MISC INFORMATION XX ONE (14:00)
[2017-05-29] MEDS ORDERED: BACITRACIN OINT 0.9 GM PKT TOP ONE (14:00)
[2017-05-29] MEDS ORDERED: SODIUM CHLORIDE 0.9% FLUSH 10 ML FLUSH IV FLUSH PRN (14:00)
[2017-05-29] MEDS ORDERED: IOHEXOL 350 MG/ML 100 ML BTL (for Cath Lab) OTHER ONE (15:56)
[2017-05-29] MEDS: SODIUM CHLOR 0.9% 1000 ML INJ 1,000 ML IV SCH ×2 (16:45→21:40)
--- NOTE | 2017-05-29 18:33 | PD.ORT.PN ---
Subjective Subjective Remarks tired from heart cath. otherwise the knee is feeling well Objective Vitals Vital Signs Date Time Temp Pulse Resp B/P (MAP) Pulse Ox O2 Delivery O2 Flow Rate FiO2 05/29/17 18:00 92 05/29/17 17:00 84 05/29/17 16:00 84 05/29/17 16:00 98.2 41 18 131/64 (86) 95 05/29/17 15:00 84 05/29/17 13:30 96 Room Air 05/29/17 13:30 98.6 45 17 152/66 (94) 96 05/29/17 11:00 78 05/29/17 10:00 90 05/29/17 09:00 64 05/29/17 08:00 98.0 74 18 123/72 (89) 98 05/29/17 08:00 72 05/29/17 07:54 98 Room Air 05/29/17 06:45 83 05/29/17 06:08 83 05/29/17 05:00 81 05/29/17 04:25 97.4 80 107/50 (69) 94 05/29/17 04:00 82 05/29/17 03:00 76 05/29/17 01:22 85 05/29/17 00:05 98.0 86 126/72 (90) 95 05/29/17 00:00 82 05/28/17 23:00 81 05/28/17 22:23 Room Air 05/28/17 22:00 84 05/28/17 21:00 78 05/28/17 20:00 78 05/28/17 20:00 98.3 83 135/69 (91) 96 05/28/17 19:00 87 I/O 05/28/17 05/28/17 05/28/17 05/29/17 05/29/17 05/29/17 07:00 15:00 23:00 07:00 15:00 23:00 Intake Total 460 ml 360 ml 240 ml 480 ml Output Total 1700 ml 1300 ml 1150 ml Balance 460 ml 360 ml -1700 ml -1060 ml -670 ml Intake Oral 360 ml 360 ml 240 ml 480 ml IV Total 100 ml Output Urine Total 1700 ml 1300 ml 1150 ml # Voids 3 1 # Bowel Movements 0 Result Diagram: 05/29/17 0559 05/28/17 1037 Procedures Right TKA Objective Remarks Dressing is C/D/I. min swelling, no erythema EHL/TA/G intact. 2+ pedal pulse. Calf is soft and nontender. + SILT. Patient on cardiac monitory. Assessment & Plan Assessment and Plan POD #2: Right TKA, post-op complication of heart arrhythmia (trigemy) The patient has a heart cath today with apparently no sig vessel disease with no intervention. However, patient still has heart arrhythmias. We put call out to cardio and OK to restart lovenox tomorrow for DVT prophylaxis. Cont monitor on cardiac unit for now. Dispo will depend on cardio (ok for d/c per ortho). 1. WBAT RLE 2. Lovenox followed by ASA for DVT prophylaxis 3. Ice to the right knee PRN 4. Resume CMP when ok with cardio. Patient is currently on bedrest b/c of cath. Start mobilizing as soon as possible once cleared by cardio 5. F/U in the office with Dr. Forde or STEFANIE Neil as previously scheduled. Otto Forde MD May 29, 2017 18:33
[2017-05-29] MEDS: TAMSULOSIN HCL 0.4 MG CAP PO SCH (20:33)
[2017-05-29] MEDS: ATORVASTATIN 10 MG TAB PO SCH (20:33)
[2017-05-29] MEDS: SODIUM CHLORIDE 0.9% FLUSH 10 ML FLUSH IV FLUSH SCH (20:34)
--- NOTE | 2017-05-29 21:59 | HHI.PR ---
Subjective Remarks Continued arrhythmia. Patient is seen status post heart cath today. Heart no positive findings mild to moderate coronary artery disease. No stents placed. Objective Vital Signs Date Time Temp Pulse Resp B/P (MAP) Pulse Ox O2 Delivery O2 Flow Rate FiO2 05/29/17 18:00 92 05/29/17 17:00 84 05/29/17 16:00 84 05/29/17 16:00 98.2 41 18 131/64 (86) 95 05/29/17 15:00 84 05/29/17 13:30 96 Room Air 05/29/17 13:30 98.6 45 17 152/66 (94) 96 05/29/17 11:00 78 05/29/17 10:00 90 05/29/17 09:00 64 05/29/17 08:00 98.0 74 18 123/72 (89) 98 05/29/17 08:00 72 05/29/17 07:54 98 Room Air 05/29/17 06:45 83 05/29/17 06:08 83 05/29/17 05:00 81 05/29/17 04:25 97.4 80 107/50 (69) 94 05/29/17 04:00 82 05/29/17 03:00 76 05/29/17 01:22 85 05/29/17 00:05 98.0 86 126/72 (90) 95 05/29/17 00:00 82 05/28/17 23:00 81 05/28/17 22:23 Room Air 05/28/17 22:00 84 I/O 05/28/17 05/28/17 05/28/17 05/29/17 05/29/17 05/29/17 07:00 15:00 23:00 07:00 15:00 23:00 Intake Total 460 ml 360 ml 240 ml 480 ml Output Total 1700 ml 1300 ml 1150 ml Balance 460 ml 360 ml -1700 ml -1060 ml -670 ml Intake Oral 360 ml 360 ml 240 ml 480 ml IV Total 100 ml Output Urine Total 1700 ml 1300 ml 1150 ml # Voids 3 1 # Bowel Movements 0 Result Diagram: 05/29/17 0559 05/28/17 1037 Objective Remarks GENERAL: NAD, A&Ox3 HEAD: Normocephalic. NECK: Supple, trachea midline. No lymphadenopathy. EYES: No scleral icterus. No injection or drainage. CARDIOVASCULAR: Irregularly irregular rhythm on auscultation. without murmurs, gallops, or rubs. RESPIRATORY: Breath sounds equal bilaterally. No accessory muscle use. GASTROINTESTINAL: Abdomen soft, non-tender, nondistended. MUSCULOSKELETAL: No cyanosis, or edema. SKIN: Warm and dry. NEURO: No focal neurological deficitis. A/P Problem List: (1) Status post total knee replacement, right ICD Code: Z96.651 - Presence of right artificial knee joint (2) Cardiac dysrhythmia ICD Code: I49.9 - Cardiac arrhythmia, unspecified Assessment and Plan 81-year-old male admitted for a right knee replacement. Tachycardia dysrhythmia after right knee replacement. Status post right knee replacement Continue pain treatments as needed Orthopedic surgeon following Need physical therapy once bed rest is completed Cardiac dysrhythmia Beta-angelia Cardiology following Patient is status post heart catheterization today No signs of ischemic etiology TSH is in normal limits 2D echocardiogram shows an EF of 40-45% BPH Continue tamsulosin Hyperlipidemia Continue present treatment Follow as an outpatient Acute kidney injury Follow renal function Avoid nephrotoxins DVT Prophylaxis Lovenox Problem Qualifiers (1) Cardiac dysrhythmia: Qualified Codes: I49.8 - Other specified cardiac arrhythmias Ten Ross MD May 29, 2017 21:59
[2017-05-29] MEDS: ACETAMINOPHEN/HYDROcodone 325 MG/5 MG TAB PO PRN (22:36)
[2017-05-29] MEDS: ZOLPIDEM TARTRATE 5 MG TAB PO PRN (22:38)
--- NOTE | 2017-05-29 23:10 | EKG ---
Date Performed: 05/29/2017 Time Performed: 16:33:50 PTAGE: 81 years EKG: Sinus rhythm with frequent PVCs Abnormal ECG PREVIOUS TRACING : 05/27/2017 15.37 No significant change from previous tracing noted. DOCTOR: Madhu Morales Interpretating Date/Time 05/29/2017 23:09:19
[2017-05-30] VITALS (30 sets, daily range): BP systolic 122–156; BP diastolic 53–81; PULSE 64–100; RESP 16–18; TEMP 98.2–98.6; O2SAT 90–96
[2017-05-30] MEDS: ZOLPIDEM TARTRATE 5 MG TAB PO PRN ×2 (02:08→23:03)
[2017-05-30] MEDS ORDERED: ENOXAPARIN SODIUM 40 MG/0.4 ML SYRINGE SQ SCH (06:00)
[2017-05-30 07:06] LABS: AUTOMATED NEUTROPHIL # 3.5 TH/MM3 (1.8-7.7); BASOPHIL % 0.3 % (0.0-2.0); EOSINOPHIL # 0.1 TH/MM3 (0-0.4); EOSINOPHIL % 2.3 % (0.0-4.0); HEMATOCRIT 22.7 % (39.0-51.0); LYMPH % 20.6 % (9.0-44.0); LYMPHOCYTE # 1.1 TH/MM3 (1.0-4.8); MEAN CELL VOLUME 97.8 FL (80.0-100.0); MEAN CORPUSCULAR HEMOGLOBIN 34.5 PG (27.0-34.0); MEAN CORPUSCULAR HGB CONC 35.3 % (32.0-36.0); MEAN PLATELET VOLUME 9.7 FL (7.0-11.0); MONO % 10.7 % (0.0-8.0); MONOCYTE # 0.6 TH/MM3 (0-0.9); NEUT % 66.1 % (16.0-70.0); PLATELET COUNT 67 TH/MM3 (150-450); RED BLOOD COUNT 2.32 MIL/MM3 (4.50-5.90); RED CELL DISTRIBUTION WIDTH 13.9 % (11.6-17.2); WHITE BLOOD COUNT 5.3 TH/MM3 (4.0-11.0)
[2017-05-30 07:26] LABS: ALBUMIN 2.5 GM/DL (3.4-5.0); BICARBONATE 28.1 MEQ/L (21.0-32.0); CALCIUM 7.7 MG/DL (8.5-10.1); CREATININE 0.73 MG/DL (0.60-1.30); DIRECT BILIRUBIN ADULT 0.2 MG/DL (0.0-0.2)
[2017-05-30 07:29] LABS: CHOLESTEROL/ HDL RATIO 2.53 RATIO; INDIRECT BILIRUBIN 0.6 MG/DL (0.0-0.8); TOTAL BILIRUBIN ADULT 0.8 MG/DL (0.2-1.0)
[2017-05-30] MEDS: INSULIN ASPART SUPPLEMENTAL SCALE SQ SCH ×4 (08:00→21:00)
--- NOTE | 2017-05-30 09:10 | PD.ORT.PN ---
Subjective Post Op Day #: 3 Pain Scale: 3 Subjective Remarks The patient is awake and alert and answers questions appropriately. Overall he is feeling well. He has mild discomfort in the knee. He wants to go home. Objective Vitals Vital Signs Date Time Temp Pulse Resp B/P (MAP) Pulse Ox O2 Delivery O2 Flow Rate FiO2 05/30/17 08:03 98.2 84 18 127/73 (91) 96 05/30/17 07:25 96 Room Air 05/30/17 06:37 85 05/30/17 05:01 84 05/30/17 04:51 98.3 86 122/53 (76) 90 05/30/17 04:00 88 05/30/17 03:00 78 05/30/17 02:00 94 05/30/17 01:00 80 05/30/17 00:09 98.2 71 125/66 (85) 95 05/30/17 00:00 76 05/29/17 23:00 78 05/29/17 22:00 90 05/29/17 21:00 86 05/29/17 20:00 Room Air 05/29/17 20:00 98.4 84 123/48 (73) 96 05/29/17 20:00 102 05/29/17 19:00 92 05/29/17 18:00 92 05/29/17 17:00 84 05/29/17 16:00 84 05/29/17 16:00 98.2 41 18 131/64 (86) 95 05/29/17 15:00 84 05/29/17 13:30 96 Room Air 05/29/17 13:30 98.6 45 17 152/66 (94) 96 05/29/17 11:00 78 05/29/17 10:00 90 I/O 05/29/17 05/29/17 05/29/17 05/30/17 05/30/17 05/30/17 07:00 15:00 23:00 07:00 15:00 23:00 Intake Total 240 ml 480 ml 480 ml Output Total 1300 ml 1150 ml 850 ml Balance -1060 ml -670 ml -370 ml Intake Oral 240 ml 480 ml 480 ml Output Urine Total 1300 ml 1150 ml 850 ml # Bowel Movements 1 Result Diagram: 05/30/17 0530 05/30/17 0530 Procedures Right TKA Objective Remarks Dressing is C/D/I. min swelling, no erythema EHL/TA/G intact. 2+ pedal pulse. Calf is soft and nontender. + SILT. Assessment & Plan Ortho Post Op Day #: 3 Problem List: Assessment and Plan POD #3: Right TKA, post-op complication of heart arrhythmia (trigemy) Awaiting/cardiology clearance to progress mobilization. Okay for discharge today if cleared. 1. WBAT RLE 2. Lovenox followed by ASA for DVT prophylaxis 3. Ice to the right knee PRN 4. Start mobilizing as soon as possible once cleared by cardio 5. F/U in the office with Dr. Forde or STEFANIE Neil as previously scheduled. Roger Cunha MD May 30, 2017 09:09
[2017-05-30] MEDS: SODIUM CHLORIDE 0.9% FLUSH 10 ML FLUSH IV FLUSH SCH ×2 (09:58→21:00)
[2017-05-30] MEDS: MULTIVITAMINS/MINERALS THERAPEUTIC TAB PO SCH ×2 (09:59→21:35)
[2017-05-30] MEDS: DOCUSATE SODIUM 100 MG CAP PO SCH ×2 (10:00→21:00)
[2017-05-30] MEDS: SODIUM CHLOR 0.9% 1000 ML INJ 1,000 ML IV SCH ×2 (10:00→21:49)
--- NOTE | 2017-05-30 10:31 | PD.CARD.PN ---
Subjective Subjective Remarks alert in nad Objective Medications Current Medications Medications (Trade) Dose Ordered Sig/Fili Route Start Time Stop Time Status Last Admin (Lipitor) 10 mg HS PO 05/27/17 21:00 05/29/17 20:33 (Ativan) 0.5 mg HS PRN PO 05/27/17 21:00 (Flomax) 0.4 mg HS PO 05/27/17 21:00 05/29/17 20:33 ([place] 5-325 Mg) 1 tab Q4H PRN PO 05/27/17 11:45 05/29/17 22:36 ([place] 5-325 Mg) 2 tab Q4H PRN PO 05/27/17 11:45 (Theragran M Tab) 1 tab BID PO 05/28/17 21:00 07/27/17 20:59 05/30/17 09:59 (Zofran Inj) 4 mg Q6H PRN IVP 05/27/17 11:45 (Colace) 100 mg BID PO 05/28/17 21:00 05/29/17 20:33 (Mag-Al Plus Susp Liq) 30 ml Q6H PRN PO 05/27/17 11:45 (Ambien) 5 mg HS PRN PO 05/27/17 21:00 05/30/17 02:08 (Dulcolax Supp) 10 mg DAILY PRN RECTAL 05/27/17 11:45 (Milk Of Magnesia Liq) 30 ml DAILY PRN PO 05/27/17 11:45 05/28/17 08:18 (Narcan Inj) 0.4 mg UNSCH PRN IV PUSH 05/27/17 11:45 (Benadryl Inj) 25 mg Q6H PRN IV PUSH 05/27/17 11:45 (Morphine Inj) 2 mg Q3H PRN IV PUSH 05/27/17 11:45 (Pill Splitter) 1 ea UNSCH PRN OTHER 05/28/17 10:15 (D50w (Vial) Inj) 50 ml UNSCH PRN IV PUSH 05/28/17 13:30 (Glucagon Inj) 1 mg UNSCH PRN OTHER 05/28/17 13:30 (NovoLOG SUPPLEMENTAL SCALE) 1 ACHS SLIDING SCALE SQ 05/28/17 17:00 05/29/17 20:34 Sodium Chloride 1,000 ml @ 84 mls/hr [id number] IV 05/28/17 13:30 05/30/17 10:00 (NS Flush) 2 ml BID IV FLUSH 05/29/17 21:00 05/29/17 20:34 (NS Flush) 2 ml UNSCH PRN IV FLUSH 05/29/17 14:00 (Lovenox Inj) 40 mg Q24H SQ 05/30/17 06:00 05/30/17 06:27 Vital Signs / I&O GENERAL: SKIN: Warm and dry. HEAD: Normocephalic. EYES: No scleral icterus. No injection or drainage. NECK: Supple, trachea midline. No JVD or lymphadenopathy. CARDIOVASCULAR: Regular rate and rhythm without murmurs, gallops, or rubs. RESPIRATORY: Breath sounds equal bilaterally. No accessory muscle use. GASTROINTESTINAL: Abdomen soft, non-tender, nondistended. MUSCULOSKELETAL: No cyanosis, or edema. BACK: Nontender without obvious deformity. No CVA tenderness. Vital Signs Date Time Temp Pulse Resp B/P (MAP) Pulse Ox O2 Delivery O2 Flow Rate FiO2 05/30/17 08:03 98.2 84 18 127/73 (91) 96 05/30/17 07:25 96 Room Air 05/30/17 06:37 85 05/30/17 05:01 84 05/30/17 04:51 98.3 86 122/53 (76) 90 05/30/17 04:00 88 05/30/17 03:00 78 05/30/17 02:00 94 05/30/17 01:00 80 05/30/17 00:09 98.2 71 125/66 (85) 95 05/30/17 00:00 76 05/29/17 23:00 78 05/29/17 22:00 90 05/29/17 21:00 86 05/29/17 20:00 Room Air 05/29/17 20:00 98.4 84 123/48 (73) 96 05/29/17 20:00 102 05/29/17 19:00 92 05/29/17 18:00 92 05/29/17 17:00 84 05/29/17 16:00 84 05/29/17 16:00 98.2 41 18 131/64 (86) 95 05/29/17 15:00 84 05/29/17 13:30 96 Room Air 05/29/17 13:30 98.6 45 17 152/66 (94) 96 05/29/17 11:00 78 I/O 05/29/17 05/29/17 05/29/17 05/30/17 05/30/17 05/30/17 07:00 15:00 23:00 07:00 15:00 23:00 Intake Total 240 ml 480 ml 480 ml 1000 ml Output Total 1300 ml 1150 ml 850 ml Balance -1060 ml -670 ml -370 ml 1000 ml Intake Oral 240 ml 480 ml 480 ml IV Total 1000 ml Output Urine Total 1300 ml 1150 ml 850 ml # Bowel Movements 1 Laboratory Laboratory Tests Test 05/30/17 05:30 White Blood Count 5.3 TH/MM3 Red Blood Count 2.32 MIL/MM3 Hemoglobin 8.0 GM/DL Hematocrit 22.7 % Mean Corpuscular Volume 97.8 FL Mean Corpuscular Hemoglobin 34.5 PG Mean Corpuscular Hemoglobin Concent 35.3 % Red Cell Distribution Width 13.9 % Platelet Count 67 TH/MM3 Mean Platelet Volume 9.7 FL Neutrophils (%) (Auto) 66.1 % Lymphocytes (%) (Auto) 20.6 % Monocytes (%) (Auto) 10.7 % Eosinophils (%) (Auto) 2.3 % Basophils (%) (Auto) 0.3 % Neutrophils # (Auto) 3.5 TH/MM3 Lymphocytes # (Auto) 1.1 TH/MM3 Monocytes # (Auto) 0.6 TH/MM3 Eosinophils # (Auto) 0.1 TH/MM3 Basophils # (Auto) 0.0 TH/MM3 CBC Comment AUTO DIFF Differential Comment AUTO DIFF CONFIRMED Platelet Estimate LOW Platelet Morphology Comment NORMAL Basophilic Stippling FAINT Blood Urea Nitrogen 15 MG/DL Creatinine 0.73 MG/DL Random Glucose 92 MG/DL Total Protein 5.0 GM/DL Albumin 2.5 GM/DL Calcium Level 7.7 MG/DL Alkaline Phosphatase 39 U/L Aspartate Amino Transf (AST/SGOT) 20 U/L Alanine Aminotransferase (ALT/SGPT) 15 U/L Total Bilirubin 0.8 MG/DL Direct Bilirubin 0.2 MG/DL Sodium Level 142 MEQ/L Potassium Level 3.8 MEQ/L Chloride Level 108 MEQ/L Carbon Dioxide Level 28.1 MEQ/L Anion Gap 6 MEQ/L Estimat Glomerular Filtration Rate 103 ML/MIN Indirect Bilirubin 0.6 MG/DL B-Type Natriuretic Peptide 290 PG/ML Triglycerides Level 94 MG/DL Cholesterol Level 99 MG/DL LDL Cholesterol 41 MG/DL HDL Cholesterol 39.0 MG/DL Cholesterol/HDL Ratio 2.53 RATIO Assessment and Plan Problem List: (1) CAD (coronary artery disease) ICD Codes: I25.10 - Atherosclerotic heart disease of [place] coronary artery without angina pectoris (2) Cardiomyopathy ICD Codes: I42.9 - Cardiomyopathy, unspecified (3) Wide-complex tachycardia ICD Codes: I47.2 - Ventricular tachycardia (4) Anemia ICD Codes: D64.9 - Anemia, unspecified (5) Thrombocytopenia ICD Codes: D69.6 - Thrombocytopenia, unspecified (6) Cardiac dysrhythmia ICD Codes: I49.9 - Cardiac arrhythmia, unspecified (7) Status post total knee replacement, right ICD Codes: Z96.651 - Presence of right artificial knee joint Assessment and Plan 1.) CAD - assymptomatic, continue lipitor, start aspirin 81 mg qd when cleared by Dr Forde, d/w nurse and patient at bedside; 2.) Wide complex tachycardia - Dr Whatley to see today 3.) anemia/thrombocytopenia - hematology consult Problem Qualifiers (1) Cardiac dysrhythmia: Qualified Codes: I49.8 - Other specified cardiac arrhythmias Richar Campbell MD May 30, 2017 10:30
[2017-05-30] MEDS: DILTIAZEM-CD 180 MG CAP ER PO SCH (12:32)
[2017-05-30] MEDS: CALCIUM CARBONATE 1.25 GM (CA 500 MG) TAB PO SCH ×2 (12:33→21:35)
[2017-05-30] MEDS: ACETAMINOPHEN/HYDROcodone 325 MG/5 MG TAB PO PRN (12:34)
--- NOTE | 2017-05-30 12:48 | EKG ---
Date Performed: 05/30/2017 Time Performed: 06:15:18 PTAGE: 81 years EKG: Sinus rhythm with frequent PVCs Lateral ST changes are nonspecific Abnormal ECG PREVIOUS TRACING : 05/29/2017 16.33 No significant change from previous tracing noted. DOCTOR: Madhu Morales Interpretating Date/Time 05/30/2017 12:45:47
[2017-05-30] MEDS ORDERED: CALCIUM GLUCONATE INJ 1 GM in SODIUM CHLORIDE 0.9% INJ 100 ML IV ONE (13:00)
--- NOTE | 2017-05-30 17:37 | HHI.PR ---
Subjective Remarks Arrhythmia has improved but still remains present. Patient feels he may have any arrhythmia throughout his entire life. Continue to monitor on telemetry. No chest pain per patient. Objective Vital Signs Date Time Temp Pulse Resp B/P (MAP) Pulse Ox O2 Delivery O2 Flow Rate FiO2 05/30/17 16:15 98.6 66 18 124/64 (84) 95 05/30/17 14:00 89 05/30/17 13:00 92 05/30/17 12:15 98.6 96 16 140/69 (92) 96 05/30/17 12:00 89 05/30/17 11:00 88 05/30/17 10:00 96 05/30/17 09:00 90 05/30/17 08:03 98.2 84 18 127/73 (91) 96 05/30/17 08:00 100 05/30/17 07:25 96 Room Air 05/30/17 07:00 99 05/30/17 06:37 85 05/30/17 05:01 84 05/30/17 04:51 98.3 86 122/53 (76) 90 05/30/17 04:00 88 05/30/17 03:00 78 05/30/17 02:00 94 05/30/17 01:00 80 05/30/17 00:09 98.2 71 125/66 (85) 95 05/30/17 00:00 76 05/29/17 23:00 78 05/29/17 22:00 90 05/29/17 21:00 86 05/29/17 20:00 Room Air 05/29/17 20:00 98.4 84 123/48 (73) 96 05/29/17 20:00 102 05/29/17 19:00 92 05/29/17 18:00 92 I/O 05/29/17 05/29/17 05/29/17 05/30/17 05/30/17 05/30/17 07:00 15:00 23:00 07:00 15:00 23:00 Intake Total 240 ml 480 ml 480 ml 1110 ml Output Total 1300 ml 1150 ml 850 ml Balance -1060 ml -670 ml -370 ml 1110 ml Intake Oral 240 ml 480 ml 480 ml IV Total 1110 ml Output Urine Total 1300 ml 1150 ml 850 ml # Bowel Movements 1 Result Diagram: 05/30/1752905/30/17529 Objective Remarks GENERAL: NAD, A&Ox3 HEAD: Normocephalic. NECK: Supple, trachea midline. No lymphadenopathy. EYES: No scleral icterus. No injection or drainage. CARDIOVASCULAR: Irregularly irregular rhythm on auscultation. without murmurs, gallops, or rubs. RESPIRATORY: Breath sounds equal bilaterally. No accessory muscle use. GASTROINTESTINAL: Abdomen soft, non-tender, nondistended. MUSCULOSKELETAL: No cyanosis, or edema. SKIN: Warm and dry. NEURO: No focal neurological deficitis. A/P Problem List: (1) Status post total knee replacement, right ICD Code: Z96.651 - Presence of right artificial knee joint (2) Cardiac dysrhythmia ICD Code: I49.9 - Cardiac arrhythmia, unspecified Assessment and Plan 81-year-old male admitted for a right knee replacement. Tachycardia dysrhythmia after right knee replacement. Continue to follow on telemetry. Cardiology following. Dr. Whatley will evaluate patient. Status post right knee replacement Continue pain treatments as needed Orthopedic surgeon following Need physical therapy once bed rest is completed Cardiac dysrhythmia Beta-angelia Cardiology following Patient is status post heart catheterization today No signs of ischemic etiology TSH is in normal limits 2D echocardiogram shows an EF of 40-45% BPH Continue tamsulosin Hyperlipidemia Continue present treatment Follow as an outpatient Acute kidney injury Follow renal function Avoid nephrotoxins DVT Prophylaxis Lovenox Problem Qualifiers (1) Cardiac dysrhythmia: Qualified Codes: I49.8 - Other specified cardiac arrhythmias Ten Ross MD May 30, 2017 17:37
[2017-05-30] MEDS: TAMSULOSIN HCL 0.4 MG CAP PO SCH (19:52)
[2017-05-30] MEDS: ASPIRIN 81 MG CHEW TAB PO SCH (21:35)
[2017-05-30] MEDS: ATORVASTATIN 10 MG TAB PO SCH (21:35)
--- NOTE | 2017-05-30 23:32 | PD.ONC.PN ---
Objective Data Date Time Temp Pulse Resp B/P (MAP) Pulse Ox O2 Delivery O2 Flow Rate FiO2 05/30/17 19:45 95 Room Air 05/30/17 19:45 98.5 78 18 156/81 (106) 95 05/30/17 19:00 69 05/30/17 18:00 64 05/30/17 17:00 86 05/30/17 16:15 98.6 66 18 124/64 (84) 95 05/30/17 16:00 66 05/30/17 15:00 66 05/30/17 14:00 89 05/30/17 13:00 92 05/30/17 12:15 98.6 96 16 140/69 (92) 96 05/30/17 12:00 89 05/30/17 11:00 88 05/30/17 10:00 96 05/30/17 09:00 90 05/30/17 08:03 98.2 84 18 127/73 (91) 96 05/30/17 08:00 100 05/30/17 07:25 96 Room Air 05/30/17 07:00 99 05/30/17 06:37 85 05/30/17 05:01 84 05/30/17 04:51 98.3 86 122/53 (76) 90 05/30/17 04:00 88 05/30/17 03:00 78 05/30/17 02:00 94 05/30/17 01:00 80 05/30/17 00:09 98.2 71 125/66 (85) 95 05/30/17 00:00 76 Result Diagram: 05/30/17 0530 05/30/17 0530 Laboratory Results Laboratory Tests Test 05/30/17 05:30 White Blood Count 5.3 TH/MM3 Red Blood Count 2.32 MIL/MM3 Hemoglobin 8.0 GM/DL Hematocrit 22.7 % Mean Corpuscular Volume 97.8 FL Mean Corpuscular Hemoglobin 34.5 PG Mean Corpuscular Hemoglobin Concent 35.3 % Red Cell Distribution Width 13.9 % Platelet Count 67 TH/MM3 Mean Platelet Volume 9.7 FL Neutrophils (%) (Auto) 66.1 % Lymphocytes (%) (Auto) 20.6 % Monocytes (%) (Auto) 10.7 % Eosinophils (%) (Auto) 2.3 % Basophils (%) (Auto) 0.3 % Neutrophils # (Auto) 3.5 TH/MM3 Lymphocytes # (Auto) 1.1 TH/MM3 Monocytes # (Auto) 0.6 TH/MM3 Eosinophils # (Auto) 0.1 TH/MM3 Basophils # (Auto) 0.0 TH/MM3 CBC Comment AUTO DIFF Differential Comment AUTO DIFF CONFIRMED Platelet Estimate LOW Platelet Morphology Comment NORMAL Basophilic Stippling FAINT Blood Urea Nitrogen 15 MG/DL Creatinine 0.73 MG/DL Random Glucose 92 MG/DL Total Protein 5.0 GM/DL Albumin 2.5 GM/DL Calcium Level 7.7 MG/DL Alkaline Phosphatase 39 U/L Aspartate Amino Transf (AST/SGOT) 20 U/L Alanine Aminotransferase (ALT/SGPT) 15 U/L Total Bilirubin 0.8 MG/DL Direct Bilirubin 0.2 MG/DL Sodium Level 142 MEQ/L Potassium Level 3.8 MEQ/L Chloride Level 108 MEQ/L Carbon Dioxide Level 28.1 MEQ/L Anion Gap 6 MEQ/L Estimat Glomerular Filtration Rate 103 ML/MIN Indirect Bilirubin 0.6 MG/DL B-Type Natriuretic Peptide 290 PG/ML Triglycerides Level 94 MG/DL Cholesterol Level 99 MG/DL LDL Cholesterol 41 MG/DL HDL Cholesterol 39.0 MG/DL Cholesterol/HDL Ratio 2.53 RATIO Administered Medications Medications (Trade) Dose Ordered Sig/Fili Route PRN Reason Start Time Stop Time Status Last Admin Dose Admin Atorvastatin Calcium (Lipitor) 10 mg HS PO 05/27/17 21:00 05/30/17 21:35 Tamsulosin HCl (Flomax) 0.4 mg HS PO 05/27/17 21:00 05/30/17 19:52 Acetaminophen/ Hydrocodone Bitart ([place] 5-325 Mg) 1 tab Q4H PRN PO PAIN LESS THAN 5 ON SCALE 05/27/17 11:45 05/30/17 12:34 Multivitamins/ Minerals Therapeutic (Theragran M Tab) 1 tab BID PO 05/28/17 21:00 07/27/17 20:59 05/30/17 21:35 Docusate Sodium (Colace) 100 mg BID PO 05/28/17 21:00 05/29/17 20:33 Zolpidem Tartrate (Ambien) 5 mg HS PRN PO SLEEP 05/27/17 21:00 05/30/17 23:03 Magnesium Hydroxide (Milk Of Magnesia Liq) 30 ml DAILY PRN PO CONSTIPATION 05/27/17 11:45 05/28/17 08:18 Insulin Aspart (NovoLOG SUPPLEMENTAL SCALE) 1 ACHS SLIDING SCALE SQ 05/28/17 17:00 05/30/17 12:48 Sodium Chloride 1,000 ml @ 84 mls/hr [id number] IV 05/28/17 13:30 05/30/17 21:49 Sodium Chloride (NS Flush) 2 ml BID IV FLUSH 05/29/17 21:00 05/29/17 20:34 Diltiazem HCl (Cardizem Cd) 180 mg DAILY PO 05/30/17 12:00 05/30/17 12:32 Calcium Carbonate (Oscal) 1,000 mg BID PO 05/30/17 12:00 05/30/17 21:35 Aspirin (Aspirin Chew) 81 mg BID PO 05/30/17 21:00 05/30/17 21:35 Objective Remarks GENERAL: Well-nourished, well-developed patient. SKIN: Warm and dry. HEAD: Normocephalic. EYES: No scleral icterus. No injection or drainage. NECK: Supple, trachea midline. No JVD or lymphadenopathy. LYMPHATIC: No adenopathy. CARDIOVASCULAR: Regular rate and rhythm without murmurs. RESPIRATORY: Breath sounds equal bilaterally. No accessory muscle use. GASTROINTESTINAL: Abdomen soft, non-tender, nondistended. EXTREMITIES: No cyanosis, or edema. MUSCULOSKELETAL: Adequate muscle tone. NEUROLOGICAL: No obvious focal deficit. Awake, alert, and oriented x3. PSYCHIATRIC: Appropriate mood and affect; insight and judgment normal. Olivier Castrejon MD May 30, 2017 23:32
[2017-05-31] VITALS (27 sets, daily range): BP systolic 110–150; BP diastolic 49–80; PULSE 58–95; RESP 16–18; TEMP 97.9–98.8; O2SAT 94–97
[2017-05-31] MEDS: ACETAMINOPHEN/HYDROcodone 325 MG/5 MG TAB PO PRN (00:53)
[2017-05-31] MEDS: RAMIPRIL 2.5 MG CAP PO ONE ×2 (08:00→08:59)
[2017-05-31] MEDS: DILTIAZEM-CD 180 MG CAP ER PO SCH (08:55)
[2017-05-31] MEDS: MULTIVITAMINS/MINERALS THERAPEUTIC TAB PO SCH ×2 (08:56→20:33)
[2017-05-31] MEDS: TAMSULOSIN HCL 0.4 MG CAP PO SCH ×2 (08:56→20:33)
[2017-05-31] MEDS: ASPIRIN 81 MG CHEW TAB PO SCH ×2 (08:56→20:33)
[2017-05-31] MEDS: DOCUSATE SODIUM 100 MG CAP PO SCH ×2 (08:58→20:33)
[2017-05-31] MEDS: CALCIUM CARBONATE 1.25 GM (CA 500 MG) TAB PO SCH ×2 (08:58→20:33)
--- NOTE | 2017-05-31 08:58 | PD.ORT.PN ---
Subjective Post Op Day #: 4 Pain Scale: 3 Subjective Remarks The patient is awake and alert and answers questions appropriately. Overall he is feeling well. He has mild discomfort in the knee. He was in the restroom during the interview, limiting the exam. He has had issues with urinary retention and currently has a Spears catheter. Objective Vitals Vital Signs Date Time Temp Pulse Resp B/P (MAP) Pulse Ox O2 Delivery O2 Flow Rate FiO2 05/31/17 07:00 95 05/31/17 06:00 78 05/31/17 05:00 82 05/31/17 04:15 98.2 86 16 150/80 (103) 95 05/31/17 04:00 88 05/31/17 03:00 70 05/31/17 02:00 68 05/31/17 01:00 78 05/31/17 00:00 70 05/30/17 23:00 72 16 132/66 (88) 95 05/30/17 23:00 77 05/30/17 22:00 66 05/30/17 21:00 78 05/30/17 20:00 80 05/30/17 19:45 95 Room Air 05/30/17 19:45 98.5 78 18 156/81 (106) 95 05/30/17 19:00 69 05/30/17 18:00 64 05/30/17 17:00 86 05/30/17 16:15 98.6 66 18 124/64 (84) 95 05/30/17 16:00 66 05/30/17 15:00 66 05/30/17 14:00 89 05/30/17 13:00 92 05/30/17 12:15 98.6 96 16 140/69 (92) 96 05/30/17 12:00 89 05/30/17 11:00 88 05/30/17 10:00 96 05/30/17 09:00 90 I/O 05/30/17 05/30/17 05/30/17 05/31/17 05/31/17 05/31/17 07:00 15:00 23:00 07:00 15:00 23:00 Intake Total 480 ml 1110 ml 1345 ml 240 ml Output Total 850 ml 1400 ml 900 ml Balance -370 ml 1110 ml -55 ml -660 ml Intake Oral 480 ml 720 ml 240 ml IV Total 1110 ml 625 ml Output Urine Total 850 ml 1400 ml 900 ml Bladder Scan Volume Amount 660 ml 275 ml # Voids 1 # Bowel Movements 1 Result Diagram: 05/30/1730 05/30/17 0530 Procedures Right TKA Objective Remarks Dressing is C/D/I. min swelling, no erythema. He moves his toes and ankle freely. He denies calf pain. He is sitting with the knee in approximately 90 of flexion. Assessment & Plan Ortho Post Op Day #: 4 Problem List: Assessment and Plan POD #3: Right TKA, post-op complication of heart arrhythmia (trigemy) Urinary retention 1. WBAT RLE 2. Lovenox followed by ASA for DVT prophylaxis 3. Ice to the right knee PRN 4. Progress rehabilitation. 5. Discharge when cleared by medical services. 6. F/U in the office with Dr. Forde or STEFANIE Neil as previously scheduled. Roger Cunha MD May 31, 2017 08:58
[2017-05-31] MEDS: SODIUM CHLORIDE 0.9% FLUSH 10 ML FLUSH IV FLUSH SCH ×2 (09:00→20:32)
--- NOTE | 2017-05-31 09:22 | PD.CARD.PN ---
Subjective Subjective Remarks alert in nad Objective Medications Current Medications Medications (Trade) Dose Ordered Sig/Fili Route Start Time Stop Time Status Last Admin (Lipitor) 10 mg HS PO 05/27/17 21:00 05/30/17 21:35 (Ativan) 0.5 mg HS PRN PO 05/27/17 21:00 (Ambia 5-325 Mg) 1 tab Q4H PRN PO 05/27/17 11:45 05/31/17 00:53 (Ambia 5-325 Mg) 2 tab Q4H PRN PO 05/27/17 11:45 (Theragran M Tab) 1 tab BID PO 05/28/17 21:00 07/27/17 20:59 05/31/17 08:56 (Zofran Inj) 4 mg Q6H PRN IVP 05/27/17 11:45 (Colace) 100 mg BID PO 05/28/17 21:00 05/31/17 08:58 (Mag-Al Plus Susp Liq) 30 ml Q6H PRN PO 05/27/17 11:45 (Ambien) 5 mg HS PRN PO 05/27/17 21:00 05/30/17 23:03 (Dulcolax Supp) 10 mg DAILY PRN RECTAL 05/27/17 11:45 (Milk Of Magnesia Liq) 30 ml DAILY PRN PO 05/27/17 11:45 05/28/17 08:18 (Narcan Inj) 0.4 mg UNSCH PRN IV PUSH 05/27/17 11:45 (Benadryl Inj) 25 mg Q6H PRN IV PUSH 05/27/17 11:45 (Morphine Inj) 2 mg Q3H PRN IV PUSH 05/27/17 11:45 (Pill Splitter) 1 ea UNSCH PRN OTHER 05/28/17 10:15 (D50w (Vial) Inj) 50 ml UNSCH PRN IV PUSH 05/28/17 13:30 (Glucagon Inj) 1 mg UNSCH PRN OTHER 05/28/17 13:30 (NS Flush) 2 ml BID IV FLUSH 05/29/17 21:00 05/31/17 09:00 (NS Flush) 2 ml UNSCH PRN IV FLUSH 05/29/17 14:00 (Cardizem Cd) 180 mg DAILY PO 05/30/17 12:00 05/31/17 08:55 (Oscal) 1,000 mg BID PO 05/30/17 12:00 05/31/17 08:58 (Aspirin Chew) 81 mg BID PO 05/30/17 21:00 05/31/17 08:56 (Flomax) 0.4 mg BID PO 05/31/17 09:00 05/31/17 08:56 (Altace) 2.5 mg DAILY PO 06/01/17 09:00 Vital Signs / I&O Vital Signs Date Time Temp Pulse Resp B/P (MAP) Pulse Ox O2 Delivery O2 Flow Rate FiO2 05/31/17 07:00 95 05/31/17 06:00 78 05/31/17 05:00 82 05/31/17 04:15 98.2 86 16 150/80 (103) 95 05/31/17 04:00 88 05/31/17 03:00 70 05/31/17 02:00 68 05/31/17 01:00 78 05/31/17 00:00 70 05/30/17 23:00 72 16 132/66 (88) 95 05/30/17 23:00 77 05/30/17 22:00 66 05/30/17 21:00 78 05/30/17 20:00 80 05/30/17 19:45 95 Room Air 05/30/17 19:45 98.5 78 18 156/81 (106) 95 05/30/17 19:00 69 05/30/17 18:00 64 05/30/17 17:00 86 05/30/17 16:15 98.6 66 18 124/64 (84) 95 05/30/17 16:00 66 05/30/17 15:00 66 05/30/17 14:00 89 05/30/17 13:00 92 05/30/17 12:15 98.6 96 16 140/69 (92) 96 05/30/17 12:00 89 05/30/17 11:00 88 05/30/17 10:00 96 I/O 05/30/17 05/30/17 05/30/17 05/31/17 05/31/17 05/31/17 07:00 15:00 23:00 07:00 15:00 23:00 Intake Total 480 ml 1110 ml 1345 ml 240 ml 800 ml Output Total 850 ml 1400 ml 900 ml Balance -370 ml 1110 ml -55 ml -660 ml 800 ml Intake Oral 480 ml 720 ml 240 ml IV Total 1110 ml 625 ml 800 ml Output Urine Total 850 ml 1400 ml 900 ml Bladder Scan Volume Amount 660 ml 275 ml # Voids 1 # Bowel Movements 1 Laboratory GENERAL: SKIN: Warm and dry. HEAD: Normocephalic. EYES: No scleral icterus. No injection or drainage. NECK: Supple, trachea midline. No JVD or lymphadenopathy. CARDIOVASCULAR: Regular rate and rhythm without murmurs, gallops, or rubs. RESPIRATORY: Breath sounds equal bilaterally. No accessory muscle use. GASTROINTESTINAL: Abdomen soft, non-tender, nondistended. MUSCULOSKELETAL: No cyanosis, or edema. BACK: Nontender without obvious deformity. No CVA tenderness. Laboratory Tests Test 05/31/17 05:30 Calcium Level 8.8 MG/DL Assessment and Plan Problem List: (1) CAD (coronary artery disease) ICD Codes: I25.10 - Atherosclerotic heart disease of [place] coronary artery without angina pectoris (2) Cardiomyopathy ICD Codes: I42.9 - Cardiomyopathy, unspecified (3) Wide-complex tachycardia ICD Codes: I47.2 - Ventricular tachycardia (4) Anemia ICD Codes: D64.9 - Anemia, unspecified (5) Thrombocytopenia ICD Codes: D69.6 - Thrombocytopenia, unspecified (6) Cardiac dysrhythmia ICD Codes: I49.9 - Cardiac arrhythmia, unspecified (7) Status post total knee replacement, right ICD Codes: Z96.651 - Presence of right artificial knee joint Assessment and Plan 1.) CAD - assymptomatic, continue lipitor, aspirin 81 mg qd, f/u with me in my office 06/01/17, d/w nurse and patient at bedside; 2.) Wide complex tachycardia - improved on cardizem 3.) anemia/thrombocytopenia - hematology consult Problem Qualifiers (1) Cardiac dysrhythmia: Qualified Codes: I49.8 - Other specified cardiac arrhythmias Richar Campbell MD May 31, 2017 09:22
--- NOTE | 2017-05-31 11:09 | MB ---
cc: ANDREA GILL DATE OF : 1935 DATE OF CONSULTATION: 05/31/2017 REASON FOR CONSULTATION: Patient with anemia and thrombocytopenia. HISTORY OF PRESENT ILLNESS This is an 81-year-old male with a history of osteoarthritis, history of left knee total replacement, BPH, hiatal hernia, lumbar stenosis and chronic thrombocytopenia who was admitted to the [facility] for right knee arthroplasty. He has undergone this procedure on May 27, 2017. He became progressively thrombocytopenic with his platelet count now in the 60,000 range. His baseline platelet count is in the low 100s. He has developed frequent PVCs and has had nonsustained V-tach. He is currently being evaluated by cardiology. He is completely asymptomatic. Upon further conversation the patient stated that he has known thrombocytopenia for several years. He has never seen a right of way appraiser. He has never had any nose bleeds or gum bleeds, no petechiae or bruising. He does not know whether he has a history of splenomegaly. He does not excessively drink alcohol. He has no known history of hepatitis or HIV. 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 Currently he appears comfortable. His right leg is immobilized. REVIEW OF SYSTEMS A comprehensive review of systems was completed which is negative except as described in the HPI. PAST MEDICAL HISTORY 1. Thrombocytopenia. 2. BPH. 3. Lumbar stenosis. 4. Hiatal hernia. 5. Osteoarthritis. PAST SURGICAL HISTORY 1. Left knee replacement in June 2015. 2. Right knee replacement in May 2017. MEDICATIONS 1. Ramipril. 2. Tamsulosin. 3. Aspirin. 4. Diltiazem. 5. Multivitamins. 6. Atorvastatin. 7. Ativan. 8. Ambien. 9. [place]. 10. Zofran p.r.n. ALLERGIES ALLERGIC TO PENICILLIN G. FAMILY HISTORY: Reviewed, noncontributory to this admission. 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 He quit smoking more than 20 years ago. He does not drink alcohol. No illicit drug use. PHYSICAL EXAMINATION: Vital signs: Blood pressure is 132/66, pulse in the 60s, temperature afebrile. General: Well-developed, well-nourished male in no apparent distress. HEENT: Pupils are equal, round, reactive to light. EOMI. No oral thrush. No oral lesions. Neck: Supple. No JVD, no bruits. No lymphadenopathy. Chest: Chest is clear to auscultation bilaterally. Cardiac: S1-S2 regular rate and rhythm. Abdomen: Soft, nontender, nondistended. Bowel sounds are present. Extremities: The right extremity is immobilized. LABORATORY DATA WBCs 5.3, hemoglobin 8, platelet count is 67. Serum chemistries show sodium 142, potassium 3.8, CO2 is 28.1, creatinine is 0.73. Albumin is 2.5. IMAGING STUDIES Reviewed in the EMR. ASSESSMENT/PLAN This is an 81 year-old male with a history of osteoarthritis, chronic thrombocytopenia, BPH, who recently underwent knee arthroplasty. He has acute drop in his platelet count. 1. Acute on chronic thrombocytopenia. This appears to have occurred in the setting of recent knee surgery. Based on his chronic history of thrombocytopenia and the drop of his platelet count, this is less likely to be HIT. I have reviewed his peripheral smear and I did not see any RBC fragments. TTP is less likely. 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 We will trend his platelet count. Will check daily CBCs. Will obtain hepatitis and HIV panel. We will check LDH and haptoglobin. From a hematology standpoint, he can be initiated on aspirin if deemed necessary by orthopedic. 2. Anemia, in the postoperative situation due to acute blood loss. Obtain anemia studies. Will rule out any underlying hemolysis. Obtain hepatitis and HIV panel as stated above. Obtain a stool hemoccult to rule out any GI causes of anemia. 3. Right knee arthroplasty. 4. History of BPH. He is having urinary retention. He did have renal ultrasound which showed dilation of the collecting system bilaterally suggesting bilateral hydronephrosis. Further evaluation by the primary team. Thank you for allowing me to participate in the care of this patient. I will continue to follow this patient along. MD TORREY Davies/CARMINA /9:27 AM /10:00 AM
--- NOTE | 2017-05-31 14:15 | HHI.PR ---
Subjective Remarks Further hematological workup ongoing. Patient has a downward trend in platelets from 78 down to 67 today. He also has a slight trend downward in his hemoglobin. No acute concerns regarding her cardiac status. Objective Vital Signs Date Time Temp Pulse Resp B/P (MAP) Pulse Ox O2 Delivery O2 Flow Rate FiO2 05/31/17 13:02 69 05/31/17 12:00 72 05/31/17 11:00 81 05/31/17 11:00 97.9 71 18 113/60 (77) 95 05/31/17 10:00 90 05/31/17 09:00 90 05/31/17 08:50 94 Room Air 05/31/17 08:50 98.4 85 17 117/55 (75) 94 05/31/17 08:00 86 05/31/17 07:00 95 05/31/17 06:00 78 05/31/17 05:00 82 05/31/17 04:15 98.2 86 16 150/80 (103) 95 05/31/17 04:00 88 05/31/17 03:00 70 05/31/17 02:00 68 05/31/17 01:00 78 05/31/17 00:00 70 05/30/17 23:00 72 16 132/66 (88) 95 05/30/17 23:00 77 05/30/17 22:00 66 05/30/17 21:00 78 05/30/17 20:00 80 05/30/17 19:45 95 Room Air 05/30/17 19:45 98.5 78 18 156/81 (106) 95 05/30/17 19:00 69 05/30/17 18:00 64 05/30/17 17:00 86 05/30/17 16:15 98.6 66 18 124/64 (84) 95 05/30/17 16:00 66 05/30/17 15:00 66 I/O 05/30/17 05/30/17 05/30/17 05/31/17 05/31/17 05/31/17 07:00 15:00 23:00 07:00 15:00 23:00 Intake Total 480 ml 1110 ml 1345 ml 240 ml 800 ml Output Total 850 ml 1400 ml 900 ml Balance -370 ml 1110 ml -55 ml -660 ml 800 ml Intake Oral 480 ml 720 ml 240 ml IV Total 1110 ml 625 ml 800 ml Output Urine Total 850 ml 1400 ml 900 ml Bladder Scan Volume Amount 660 ml 275 ml 657 ml # Voids 1 # Bowel Movements 1 Result Diagram: 05/30/1752905/30/17529 Objective Remarks GENERAL: NAD, A&Ox3 HEAD: Normocephalic. NECK: Supple, trachea midline. No lymphadenopathy. EYES: No scleral icterus. No injection or drainage. CARDIOVASCULAR: Irregularly irregular rhythm on auscultation. without murmurs, gallops, or rubs. RESPIRATORY: Breath sounds equal bilaterally. No accessory muscle use. GASTROINTESTINAL: Abdomen soft, non-tender, nondistended. MUSCULOSKELETAL: No cyanosis, or edema. SKIN: Warm and dry. NEURO: No focal neurological deficitis. A/P Problem List: (1) Status post total knee replacement, right ICD Code: Z96.651 - Presence of right artificial knee joint (2) Cardiac dysrhythmia ICD Code: I49.9 - Cardiac arrhythmia, unspecified Assessment and Plan 81-year-old male admitted for a right knee replacement. Tachycardia dysrhythmia after right knee replacement. Continue to workup thrombocytopenia. Cardiac rhythm has remained stable. Cleared by cardiology. Patient stable for transfer out of [facility]. Liver ultrasound pending. Status post right knee replacement Continue pain treatments as needed Orthopedic surgeon following Need physical therapy once bed rest is completed Cardiac dysrhythmia Beta-angelia Cardiology following Patient is status post heart catheterization today No signs of ischemic etiology TSH is in normal limits 2D echocardiogram shows an EF of 40-45% BPH Continue tamsulosin Hyperlipidemia Continue present treatment Follow as an outpatient Acute kidney injury Follow renal function Avoid nephrotoxins DVT Prophylaxis Lovenox Problem Qualifiers (1) Cardiac dysrhythmia: Qualified Codes: I49.8 - Other specified cardiac arrhythmias Ten Ross MD May 31, 2017 14:15
--- NOTE | 2017-05-31 16:39 | RADRPT ---
EXAM DATE/TIME: 05/31/2017 15:43 [place] COMPARISON: No previous studies available for comparison. INDICATIONS : Thrombocytopenia. MEDICAL HISTORY : Benign prostatic hyperplasia, (BPH) Hearing loss. Blood transfusion. Renal disease. Thrombocytope ricky. Anemia. Cardiomyopathy. Coronary artery disease. SURGICAL HISTORY : Bilateral cataract removal. Umbilical hernia. Appendectomy. Left partial knee. Left rotator cuff repa ir. Bilateral knee replacement. ENCOUNTER: Subsequent ACUITY: 1 day PAIN SCORE: 2/10 LOCATION: Bilateral upper quadrant MEASUREMENTS: LIVER: 14.5 cm length COMMON DUCT: 3 mm RIGHT KIDNEY: 10.8 x 5.0 x 5.1 cm SPLEEN: 9.6 cm length FINDINGS: LIVER: Normal echotexture without focal lesion or ductal dilatation. Trace free fluid between liver and rig ht kidney. COMMON DUCT: No intraluminal mass or stone visualized. GALLBLADDER: Contains no stones, demonstrates no wall thickening or pericholecystic fluid. PANCREAS: The visualized portions are within normal limits. RIGHT KIDNEY: No hydronephrosis, stone or solid mass. 8 mm cyst present. SPLEEN: No focal lesion. CONCLUSION: 1. Trace free fluid between right kidney and liver. 8 mm cyst right kidney. Incidental 5 cm cyst left kidney. No gallstones or biliary ductal dilatation. Justin Kelly MD on May 31, 2017 at 16:35 Board Certified Radiologist. This report was verified electronically.
[2017-05-31] MEDS: ATORVASTATIN 10 MG TAB PO SCH (20:33)
--- NOTE | 2017-05-31 21:53 | MA ---
cc: KENRICK HORNE M.D. DATE: 05/29/2017 PROCEDURE: Right heart catheterization, left heart catheterization, left ventriculography, coronary angiography. INDICATIONS V-tach, frequent ventricular ectopy, cardiomyopathy postop knee replacement surgery, multiple cardiac risk factors, coronary artery disease. PROCEDURE PERFORMED: The patient was brought to the Cardiac Catheterization Laboratory, prepped and draped in the usual sterile fashion. 10 cc of 1% lidocaine was used to locally anesthetize the right common femoral artery. A 4 Burundian sheath placed in the right common femoral artery, 5.5 [place]ian sheath placed in the right femoral vein. Right heart catheterization was performed first with the following findings. Pulmonary capillary wedge pressure 20/20-12. PA pressure 32/13-22. RV pressure 34/2-9. RA pressure 7/4-2. Cardiac output by Yomi is 8.8 liters per minute. Cardiac index by Yomi is 4.8 liters per meter squared per minute. SVR is 794.1 dynes. The femoral artery sat on room air 95.4. Pulmonary artery sat on room air, 72.7%. RA sat is 71.7%. Left heart catheterization was then performed with 4-Bur[place]ian JR-4, JL-4 catheter with the following findings. The LV pressure is 140/5-7, EF 45%. The right coronary artery is a large dominant vessel with a reference vessel diameter of probably 5 mm. It is fibrocalcific fluoroscopy throughout most of its proximal length. There is 20 to 30% diffuse disease in the proximal segment. There is a 60% lesion in the mid to distal segment. This is best appreciated in the SPANISH view. The left main coronary artery appears tortuous with a very ostial proximal segment. There appears to be a crease that I did image in the caudal views, but I don't see any definite focal stenosis in the APRIL caudal, AP caudal, FAJARDO caudal, FAJARDO cranial, AP cranial, and SPANISH cranial views. The LAD is a large transapical vessel with mild diffuse disease in the proximal segment up to 20% angiographically. First diagonal artery is a medium-sized large vessel 3.0, reference vessel diameter with an ostial 50% stenosis. The left circumflex vessel has no significant disease angiographically. The first obtuse marginal vessel is a large 4.0 reference vessel diameter vessel with no significant disease angiographically. The second obtuse marginal vessel is a 1.5 mm vessel, no significant disease angiographically. CONCLUSION 1. Angiographically moderate two-vessel coronary artery disease in the right dominant system. 2. Tortuous left main cannot appreciate any definite stenosis. 3. Cardiomyopathy EF 45%. Cardiac index is calculated to be 4.8 liters per meter squared per minute by Yomi method. RECOMMENDATIONS: Recommend medical management for coronary artery disease and cardiomyopathy. Recommend medical management of arrhythmia. Will also get an EP consult. Normally I would IVUS the left main and perform FFR of the right coronary artery, however, the patient had knee replacement surgery two days prior to the procedure and I discussed the case with Dr. Forde this morning. He informed me that there would be a high-risk of knee replacement failure with heparinization, as the patient is currently asymptomatic with no history of syncope and he also has thrombocytopenia and anemia with unstable hemoglobin. I felt that it was reasonable and that risk/benefit ratio is most favorable for medical management observation with EP evaluation. The patient was started on Lopressor 12.5 but apparently became bradycardic on that. Will try a lower dose of Coreg 3.125 b.i.d., Altace 2.5 daily, aspirin 81 milligrams daily. The patient is on DVT Lovenox. Will also treat lipids, NCP guidelines. MD JENNA Lauren/CARMINA /1:07 PM /9:34 PM
[2017-05-31] MEDS: ZOLPIDEM TARTRATE 5 MG TAB PO PRN (22:03)
[2017-06-01] VITALS (7 sets, daily range): BP systolic 98–135; BP diastolic 55–64; PULSE 60–86; RESP 15–17; TEMP 96.8–97.9; O2SAT 95–99
[2017-06-01 05:50] LABS: HEMATOCRIT 22.6 % (39.0-51.0); MEAN CELL VOLUME 96.3 FL (80.0-100.0); MEAN CORPUSCULAR HEMOGLOBIN 34.1 PG (27.0-34.0); MEAN CORPUSCULAR HGB CONC 35.4 % (32.0-36.0); MEAN PLATELET VOLUME 8.4 FL (7.0-11.0); PLATELET COUNT 89 TH/MM3 (150-450); RED BLOOD COUNT 2.35 MIL/MM3 (4.50-5.90); RED CELL DISTRIBUTION WIDTH 13.7 % (11.6-17.2); WHITE BLOOD COUNT 3.7 TH/MM3 (4.0-11.0)
[2017-06-01 06:14] LABS: BICARBONATE 29.3 MEQ/L (21.0-32.0); CALCIUM 8.1 MG/DL (8.5-10.1); CREATININE 0.65 MG/DL (0.60-1.30)
[2017-06-01] MEDS: DOCUSATE SODIUM 100 MG CAP PO SCH ×2 (08:29→21:00)
[2017-06-01] MEDS: DILTIAZEM-CD 180 MG CAP ER PO SCH (08:29)
[2017-06-01] MEDS: MULTIVITAMINS/MINERALS THERAPEUTIC TAB PO SCH ×2 (08:29→22:40)
[2017-06-01] MEDS: CALCIUM CARBONATE 1.25 GM (CA 500 MG) TAB PO SCH ×2 (08:29→22:40)
[2017-06-01] MEDS: ASPIRIN 81 MG CHEW TAB PO SCH ×2 (08:30→22:39)
[2017-06-01] MEDS: RAMIPRIL 2.5 MG CAP PO SCH (08:32)
[2017-06-01] MEDS: TAMSULOSIN HCL 0.4 MG CAP PO SCH ×2 (08:33→22:46)
[2017-06-01] MEDS: SODIUM CHLORIDE 0.9% FLUSH 10 ML FLUSH IV FLUSH SCH ×2 (08:33→22:47)
--- NOTE | 2017-06-01 09:59 | MB ---
cc: KENRICK HORNE M.D.,PAUL CEJA MD DATE OF CONSULTATION: 05/30/2017. REASON FOR CONSULTATION: Management of PVCs and VTs. REFERRING PHYSICIAN: Dr. Horne. HISTORY OF PRESENT ILLNESS: I had the pleasure of seeing Gui. 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 He does have hypertension in the past and underwent right knee surgery with Dr. Forde on May 27. Postoperatively he was found to have frequent PVCs and so far nonsustained VT. I did a review of all the tracings so far and all of them are nonsustained. I did not see any sustained episode. So far, the patient denies any major symptoms. No episodes of dizziness or syncope. He did have an echocardiogram which showed an ejection fraction of 40% to 45% with mild to moderate mitral regurgitation and tricuspid regurgitation. He also had a cardiac catheterization with Dr. Horne, which showed moderate coronary artery disease with diagonal 50% with right coronary artery 60% disease with ejection fraction of around 45%. Currently he is taking Lovenox along with atorvastatin 10 milligrams at bedtime. He is denying any major symptoms. PAST MEDICAL HISTORY: As above. He also has: 1. Benign prostate hypertrophy. 2. Lumbar stenosis. 3. Hiatal hernia. 4. Osteoarthritis. 5. Left knee replacement in 2016. MEDICATIONS: 1. Lovenox. 2. A multivitamin. 3. Atorvastatin. REVIEW OF SYSTEMS: HEAD, EYES, EARS, NOSE, THROAT: Normal. GASTROINTESTINAL: No nausea or vomiting. GENITOURINARY: No dysuria. MUSCULOSKELETAL: Fatigue. CARDIOVASCULAR: As above. He has some dyspnea. ENDOCRINE: Normal. SKIN: Normal. PSYCHIATRIC: Normal. 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 PHYSICAL EXAMINATION: VITAL SIGNS: The patient has a blood pressure of 130/60 with pulse in the 60s to 100s with intermittent PVCs. 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 The PVC bigeminy with nonsustained VT is up to three to four beats. HEAD, EYES, EARS, NOSE, THROAT: Pupils equal, round and reactive to light and accommodation. ENDOCRINE: There is no thyroid enlargement. LYMPHATIC: No lymphadenopathy. RESPIRATORY: Decreased breath sounds bilaterally but no crackles. CARDIOVASCULAR: Regular frequent ectopy. Decreased S1 and S2. No loud murmurs. GASTROINTESTINAL: Active bowel sounds in all four quadrants. : Deferred. MUSCULOSKELETAL: Limited motion involving the right knee. PSYCHIATRIC: The patient has good mood and good judgment. NEUROLOGIC: There are no focal neurologic deficits. 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 Leads V1 and V2 are negative. Echocardiogram showed left ventricular ejection fraction around 40% to 45%. ASSESSMENT: 1. 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 2. Cardiomyopathy with ejection fraction around 40% to 45%. 3. Moderate coronary artery disease. 4. Hypertension. 5. Status post right knee surgery. PLAN: 1. I did discuss all the treatment options. 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 I do think it is possible to consideration ablation in the future. We are going to have the patient try a calcium channel angelia first. I do think the patient can go home with outpatient close follow up including me and Dr. Horne in a week. He does have some degree of cardiomyopathy which hopefully will improve with correction of PVCs and nonsustained ventricular tachycardia. 2. I will add Cardizem CD 180 milligrams daily and hopefully the blood pressure will tolerate. 3. As to the rehabilitation, I do recommend rehabilitation with monitor / telemetry. 4. I will continue atorvastatin for coronary artery disease. 5. I will consider a baby aspirin later on also. I would like to thank Dr. Horne for letting me participate in the care of Mr. Soria. MD ELBA Hope/BHUMIKA /10:45 AM /9:56 AM
[2017-06-01 10:18] LABS: HEPATITIS B CORE AB IGM NEGATIVE (NEGATIVE); HEPATITIS B SURFACE ANTIGEN NEGATIVE (NEGATIVE); HEPATITIS C AB IgG NEGATIVE (NEGATIVE)
--- NOTE | 2017-06-01 12:02 | PD.ORT.PN ---
Subjective Post Op Day #: 5 Subjective Remarks Patient is OOB in chair. Patient reports minimal right knee pain. Patient reports having some urinary retention and had to have a Spears cath placed. Awaiting urology consultation. Patient currently on Tele. Patient denies CP or SOB currently. Objective Vitals Vital Signs Date Time Temp Pulse Resp B/P (MAP) Pulse Ox O2 Delivery O2 Flow Rate FiO2 06/01/17 08:00 96.8 86 17 98/55 (69) 97 06/01/17 04:00 71 06/01/17 03:38 97.8 61 16 111/63 (79) 98 06/01/17 00:10 65 05/31/17 23:35 97.9 58 16 132/80 (97) 97 05/31/17 22:15 82 05/31/17 21:00 74 05/31/17 20:00 72 05/31/17 19:42 97 Room Air 05/31/17 19:42 98.8 79 16 127/76 (93) 97 05/31/17 19:00 79 05/31/17 18:11 74 05/31/17 16:00 81 05/31/17 15:37 98.1 76 18 110/49 (69) 96 05/31/17 15:00 79 05/31/17 14:00 69 05/31/17 13:02 69 05/31/17 12:00 72 I/O 05/31/17 05/31/17 05/31/17 06/01/17 06/01/17 06/01/17 07:00 15:00 23:00 07:00 15:00 23:00 Intake Total 240 ml 800 ml 480 ml 480 ml Output Total 900 ml 2350 ml 450 ml Balance -660 ml 800 ml -1870 ml 30 ml Intake Oral 240 ml 480 ml 480 ml IV Total 800 ml Output Urine Total 900 ml 2350 ml 450 ml Bladder Scan Volume Amount 275 ml 657 ml 757 ml # Voids 1 # Bowel Movements 0 0 Result Diagram: 06/01/17 0533 06/01/17 0533 Procedures Right TKA Objective Remarks Dressing is C/D/I. min swelling, no erythema. He moves his toes and ankle freely. He denies calf pain. + SILT Spears cath in place. Assessment & Plan Ortho Post Op Day #: 5 Problem List: Assessment and Plan POD #5: Right TKA, post-op complication of heart arrhythmia (trigeminy) Urinary retention 1. WBAT RLE 2. Lovenox followed by ASA for DVT prophylaxis 3. Ice to the right knee PRN 4. Progress rehabilitation. 5. Discharge when cleared by medical services, cardiology, and urology. 6. F/U in the office with Dr. Forde or STEFANIE Neil as previously scheduled. 7. Continue to work on bladder training and appreciate urology consultation and recommendation. 8. Cardiology has cleared patient to go home with close follow up and medical management of meds. 2D echocardiogram shows an EF of 40-45% Ten Raza Jun 01, 2017 12:02
[2017-06-01] MEDS: MAGNESIUM HYDROXIDE SUSP 30 ML CUP PO PRN (12:41)
--- NOTE | 2017-06-01 15:02 | PD.CARD.PN ---
Subjective Subjective Remarks alert in nad Objective Medications Current Medications Medications (Trade) Dose Ordered Sig/Fili Route Start Time Stop Time Status Last Admin (Lipitor) 10 mg HS PO 05/27/17 21:00 05/31/17 20:33 (Ativan) 0.5 mg HS PRN PO 05/27/17 21:00 (Reserve 5-325 Mg) 1 tab Q4H PRN PO 05/27/17 11:45 05/31/17 00:53 (Reserve 5-325 Mg) 2 tab Q4H PRN PO 05/27/17 11:45 (Theragran M Tab) 1 tab BID PO 05/28/17 21:00 07/27/17 20:59 06/01/17 08:29 (Zofran Inj) 4 mg Q6H PRN IVP 05/27/17 11:45 (Colace) 100 mg BID PO 05/28/17 21:00 06/01/17 08:29 (Mag-Al Plus Susp Liq) 30 ml Q6H PRN PO 05/27/17 11:45 (Ambien) 5 mg HS PRN PO 05/27/17 21:00 05/31/17 22:03 (Dulcolax Supp) 10 mg DAILY PRN RECTAL 05/27/17 11:45 (Milk Of Magnesia Liq) 30 ml DAILY PRN PO 05/27/17 11:45 06/01/17 12:41 (Narcan Inj) 0.4 mg UNSCH PRN IV PUSH 05/27/17 11:45 (Benadryl Inj) 25 mg Q6H PRN IV PUSH 05/27/17 11:45 (Morphine Inj) 2 mg Q3H PRN IV PUSH 05/27/17 11:45 (Pill Splitter) 1 ea UNSCH PRN OTHER 05/28/17 10:15 (D50w (Vial) Inj) 50 ml UNSCH PRN IV PUSH 05/28/17 13:30 (Glucagon Inj) 1 mg UNSCH PRN OTHER 05/28/17 13:30 (NS Flush) 2 ml BID IV FLUSH 05/29/17 21:00 06/01/17 08:33 (NS Flush) 2 ml UNSCH PRN IV FLUSH 05/29/17 14:00 (Cardizem Cd) 180 mg DAILY PO 05/30/17 12:00 06/01/17 08:29 (Oscal) 1,000 mg BID PO 05/30/17 12:00 06/01/17 08:29 (Aspirin Chew) 81 mg BID PO 05/30/17 21:00 06/01/17 08:30 (Flomax) 0.4 mg BID PO 05/31/17 09:00 05/31/17 20:33 (Altace) 2.5 mg DAILY PO 06/01/17 09:00 Vital Signs / I&O Vital Signs Date Time Temp Pulse Resp B/P (MAP) Pulse Ox O2 Delivery O2 Flow Rate FiO2 06/01/17 12:00 97.7 71 17 135/64 (87) 99 06/01/17 08:00 96.8 86 17 98/55 (69) 97 06/01/17 04:00 71 06/01/17 03:38 97.8 61 16 111/63 (79) 98 06/01/17 00:10 65 05/31/17 23:35 97.9 58 16 132/80 (97) 97 05/31/17 22:15 82 05/31/17 21:00 74 05/31/17 20:00 72 05/31/17 19:42 97 Room Air 05/31/17 19:42 98.8 79 16 127/76 (93) 97 05/31/17 19:00 79 05/31/17 18:11 74 05/31/17 16:00 81 05/31/17 15:37 98.1 76 18 110/49 (69) 96 I/O 05/31/17 05/31/17 05/31/17 06/01/17 06/01/17 06/01/17 07:00 15:00 23:00 07:00 15:00 23:00 Intake Total 240 ml 800 ml 480 ml 480 ml Output Total 900 ml 2350 ml 450 ml Balance -660 ml 800 ml -1870 ml 30 ml Intake Oral 240 ml 480 ml 480 ml IV Total 800 ml Output Urine Total 900 ml 2350 ml 450 ml Bladder Scan Volume Amount 275 ml 657 ml 757 ml # Voids 1 # Bowel Movements 0 0 Physical Exam GENERAL: SKIN: Warm and dry. HEAD: Normocephalic. EYES: No scleral icterus. No injection or drainage. NECK: Supple, trachea midline. No JVD or lymphadenopathy. CARDIOVASCULAR: Regular rate and rhythm without murmurs, gallops, or rubs. RESPIRATORY: Breath sounds equal bilaterally. No accessory muscle use. GASTROINTESTINAL: Abdomen soft, non-tender, nondistended. MUSCULOSKELETAL: No cyanosis, or edema. BACK: Nontender without obvious deformity. No CVA tenderness. Laboratory Laboratory Tests Test 06/01/17 05:33 White Blood Count 3.7 TH/MM3 Red Blood Count 2.35 MIL/MM3 Hemoglobin 8.0 GM/DL Hematocrit 22.6 % Mean Corpuscular Volume 96.3 FL Mean Corpuscular Hemoglobin 34.1 PG Mean Corpuscular Hemoglobin Concent 35.4 % Red Cell Distribution Width 13.7 % Platelet Count 89 TH/MM3 Mean Platelet Volume 8.4 FL Blood Urea Nitrogen 12 MG/DL Creatinine 0.65 MG/DL Random Glucose 102 MG/DL Calcium Level 8.1 MG/DL Sodium Level 142 MEQ/L Potassium Level 3.5 MEQ/L Chloride Level 107 MEQ/L Carbon Dioxide Level 29.3 MEQ/L Anion Gap 6 MEQ/L Estimat Glomerular Filtration Rate 118 ML/MIN Assessment and Plan Problem List: (1) CAD (coronary artery disease) ICD Codes: I25.10 - Atherosclerotic heart disease of [place] coronary artery without angina pectoris (2) Cardiomyopathy ICD Codes: I42.9 - Cardiomyopathy, unspecified (3) Wide-complex tachycardia ICD Codes: I47.2 - Ventricular tachycardia (4) Anemia ICD Codes: D64.9 - Anemia, unspecified (5) Thrombocytopenia ICD Codes: D69.6 - Thrombocytopenia, unspecified (6) Cardiac dysrhythmia ICD Codes: I49.9 - Cardiac arrhythmia, unspecified (7) Status post total knee replacement, right ICD Codes: Z96.651 - Presence of right artificial knee joint Assessment and Plan 1.) CAD - assymptomatic, continue lipitor, aspirin 81 mg qd, f/u with me in my office 06/02/17, d/w nurse and patient at bedside; 2.) Wide complex tachycardia - improved on cardizem 3.) anemia/thrombocytopenia - hematology evaluating 4.) bladder outlet obstruction - damon in place Problem Qualifiers (1) Cardiac dysrhythmia: Qualified Codes: I49.8 - Other specified cardiac arrhythmias Richar Campbell MD Jun 01, 2017 15:02
--- NOTE | 2017-06-01 19:48 | HHI.PR ---
Subjective Remarks Doing well his trying to move from the bed to the chair Denied chest pain or short of breath He is concerned about the urine obstruction he wants to see urology Objective Vitals Vital Signs Date Time Temp Pulse Resp B/P (MAP) Pulse Ox O2 Delivery O2 Flow Rate FiO2 06/01/17 16:00 97.9 60 17 109/59 (76) 95 06/01/17 12:00 97.7 71 17 135/64 (87) 99 06/01/17 08:00 96.8 86 17 98/55 (69) 97 06/01/17 04:00 71 06/01/17 03:38 97.8 61 16 111/63 (79) 98 06/01/17 00:10 65 05/31/17 23:35 97.9 58 16 132/80 (97) 97 05/31/17 22:15 82 05/31/17 21:00 74 05/31/17 20:00 72 I/O 05/31/17 05/31/17 05/31/17 06/01/17 06/01/17 06/01/17 07:00 15:00 23:00 07:00 15:00 23:00 Intake Total 240 ml 800 ml 480 ml 480 ml 480 ml Output Total 900 ml 2350 ml 450 ml 425 ml Balance -660 ml 800 ml -1870 ml 30 ml 55 ml Intake Oral 240 ml 480 ml 480 ml 480 ml IV Total 800 ml Output Urine Total 900 ml 2350 ml 450 ml 425 ml Bladder Scan Volume Amount 275 ml 657 ml 757 ml # Voids 1 # Bowel Movements 0 0 1 Result Diagram: 06/01/17 0533 06/01/17 0533 Objective Remarks GENERAL: This is a well-nourished, well-developed patient, in no apparent distress. SKIN: No rashes, warm and dry HEAD: Atraumatic. Normocephalic. EYES: Pupils equal round and reactive. Extraocular motions intact. No scleral icterus. ENT: Nose without bleeding, or drainage, Airway patent. NECK: Trachea midline. Supple CARDIOVASCULAR: Regular rate and rhythm without murmurs, gallops, or rubs. RESPIRATORY: Fair air entry bilaterally. No wheezes, rales, or rhonchi. GASTROINTESTINAL: Abdomen soft, non-tender, nondistended. Positive bowel sounds MUSCULOSKELETAL: Extremities without clubbing, cyanosis, or edema. Pedal pulses appreciated NEUROLOGICAL: Awake and alert. Moves all extremity. Normal speech.no focal neurological deficit A/P Problem List: (1) Status post total knee replacement, right ICD Code: Z96.651 - Presence of right artificial knee joint (2) Cardiac dysrhythmia ICD Code: I49.9 - Cardiac arrhythmia, unspecified (3) BPH (benign prostatic hyperplasia) ICD Code: N40.0 - Benign prostatic hyperplasia without lower urinary tract symptoms (4) Hyperlipidemia ICD Code: E78.5 - Hyperlipidemia, unspecified Status: Chronic (5) Hyperglycemia ICD Code: R73.9 - Hyperglycemia, unspecified (6) MARGARITO (acute kidney injury) ICD Code: N17.9 - Acute kidney failure, unspecified Assessment and Plan 81-year-old male admitted for a right knee replacement. Tachycardia dysrhythmia after right knee replacement. Continue to workup thrombocytopenia. Cardiac rhythm has remained stable. Cleared by cardiology. Patient stable for transfer out of [facility]. Liver ultrasound pending. 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
--- NOTE | 2017-06-01 22:04 | PD.ONC.PN ---
Subjective Subjective Remarks doing better no bleeding ambulating with assistance PT ongoing Objective Data Date Time Temp Pulse Resp B/P (MAP) Pulse Ox O2 Delivery O2 Flow Rate FiO2 06/01/17 16:00 97.9 60 17 109/59 (76) 95 06/01/17 12:00 97.7 71 17 135/64 (87) 99 06/01/17 08:00 96.8 86 17 98/55 (69) 97 06/01/17 04:00 71 06/01/17 03:38 97.8 61 16 111/63 (79) 98 06/01/17 00:10 65 05/31/17 23:35 97.9 58 16 132/80 (97) 97 05/31/17 22:15 82 06/01/17 06/01/17 06/01/17 07:00 15:00 23:00 Intake Total 480 ml 480 ml Output Total 450 ml 425 ml Balance 30 ml 55 ml Result Diagram: 06/01/17 0533 06/01/17 0533 Laboratory Results Laboratory Tests Test 06/01/17 05:33 White Blood Count 3.7 TH/MM3 Red Blood Count 2.35 MIL/MM3 Hemoglobin 8.0 GM/DL Hematocrit 22.6 % Mean Corpuscular Volume 96.3 FL Mean Corpuscular Hemoglobin 34.1 PG Mean Corpuscular Hemoglobin Concent 35.4 % Red Cell Distribution Width 13.7 % Platelet Count 89 TH/MM3 Mean Platelet Volume 8.4 FL Blood Urea Nitrogen 12 MG/DL Creatinine 0.65 MG/DL Random Glucose 102 MG/DL Calcium Level 8.1 MG/DL Sodium Level 142 MEQ/L Potassium Level 3.5 MEQ/L Chloride Level 107 MEQ/L Carbon Dioxide Level 29.3 MEQ/L Anion Gap 6 MEQ/L Estimat Glomerular Filtration Rate 118 ML/MIN Culture Results Microbiology Date/Time Source Procedure Growth Status 05/31/17 10:30 Stool Stool Stool Occult Blood (LAKSHMI) - Final HEMOCCULT NEGATIVE Complete Administered Medications Medications (Trade) Dose Ordered Sig/Fili Route PRN Reason Start Time Stop Time Status Last Admin Dose Admin Atorvastatin Calcium (Lipitor) 10 mg HS PO 05/27/17 21:00 05/31/17 20:33 Acetaminophen/ Hydrocodone Bitart (Henning 5-325 Mg) 1 tab Q4H PRN PO PAIN LESS THAN 5 ON SCALE 05/27/17 11:45 05/31/17 00:53 Multivitamins/ Minerals Therapeutic (Theragran M Tab) 1 tab BID PO 05/28/17 21:00 07/27/17 20:59 06/01/17 08:29 Docusate Sodium (Colace) 100 mg BID PO 05/28/17 21:00 06/01/17 08:29 Zolpidem Tartrate (Ambien) 5 mg HS PRN PO SLEEP 05/27/17 21:00 05/31/17 22:03 Magnesium Hydroxide (Milk Of Magnesia Liq) 30 ml DAILY PRN PO CONSTIPATION 05/27/17 11:45 06/01/17 12:41 Sodium Chloride (NS Flush) 2 ml BID IV FLUSH 05/29/17 21:00 06/01/17 08:33 Diltiazem HCl (Cardizem Cd) 180 mg DAILY PO 05/30/17 12:00 06/01/17 08:29 Calcium Carbonate (Oscal) 1,000 mg BID PO 05/30/17 12:00 06/01/17 08:29 Aspirin (Aspirin Chew) 81 mg BID PO 05/30/17 21:00 06/01/17 08:30 Tamsulosin HCl (Flomax) 0.4 mg BID PO 05/31/17 09:00 05/31/17 20:33 Objective Remarks GENERAL: nad SKIN: Warm and dry. CARDIOVASCULAR: Regular rate and rhythm without murmurs. RESPIRATORY: Breath sounds equal bilaterally. No accessory muscle use. GASTROINTESTINAL: Abdomen soft, non-tender, nondistended. EXTREMITIES: No cyanosis, or edema. Assessment/Plan Problem List: (1) Anemia ICD Codes: D64.9 - Anemia, unspecified (2) Thrombocytopenia ICD Codes: D69.6 - Thrombocytopenia, unspecified (3) Mechanical complic of internal orthopedic device, implant or graft ICD Codes: T84.498A - Other mechanical complication of other internal orthopedic devices, implants and grafts, initial encounter Status: Acute Assessment 1. Acute on chronic Thrombocytopenia in the setting of surgery - PLT count improving - no bleeding 2. Anmeia due acute blood loss and iron deficiency - anemia studies pending - stool heme-occult pending Olivier Castrejon MD Jun 01, 2017 22:04
[2017-06-01] MEDS: ATORVASTATIN 10 MG TAB PO SCH (22:40)
[2017-06-01] MEDS: ZOLPIDEM TARTRATE 5 MG TAB PO PRN (22:43)
[2017-06-02] VITALS: BP 117/62; PULSE 65; RESP 15; TEMP 98.3; O2SAT 93
[2017-06-02 04:00] VITALS: BP 114/59; PULSE 56; RESP 14; TEMP 97.4; O2SAT 93
[2017-06-02 07:31] LABS: IRON (FE) 53 MCG/DL (65-175)
[2017-06-02 07:56] LABS: % SATURATION IRON PROFILE 22.3 % (20-50); TOTAL IRON BINDING CAPACITY 238 MCG/DL (250-450)
[2017-06-02 08:00] VITALS: BP 116/58; PULSE 75; PULSE 82; RESP 18; TEMP 99.2; O2SAT 92
[2017-06-02] MEDS: CALCIUM CARBONATE 1.25 GM (CA 500 MG) TAB PO SCH (10:11)
[2017-06-02] MEDS: DILTIAZEM-CD 180 MG CAP ER PO SCH (10:12)
[2017-06-02] MEDS: DOCUSATE SODIUM 100 MG CAP PO SCH (10:12)
[2017-06-02] MEDS: RAMIPRIL 2.5 MG CAP PO SCH (10:12)
[2017-06-02] MEDS: MULTIVITAMINS/MINERALS THERAPEUTIC TAB PO SCH (10:12)
[2017-06-02] MEDS: ASPIRIN 81 MG CHEW TAB PO SCH (10:12)
[2017-06-02] MEDS: TAMSULOSIN HCL 0.4 MG CAP PO SCH (10:12)
[2017-06-02 10:17] VITALS: BP 130/71; PULSE 83
[2017-06-02] MEDS: SODIUM CHLORIDE 0.9% FLUSH 10 ML FLUSH IV FLUSH SCH (10:17)
[2017-06-02 12:00] VITALS: BP 99/54; PULSE 55; PULSE 85; RESP 18; TEMP 98.5; O2SAT 99
--- NOTE | 2017-06-02 12:13 | PD.CONS ---
HPI Service Urology Consult Requested By Dr Adams Reason for Consult Post/op retention Primary Care Physician Clive Pandya M.D. Diagnosis: (1) Status post total knee replacement, right ICD Code: Z96.651 - Presence of right artificial knee joint (2) Cardiac dysrhythmia ICD Code: I49.9 - Cardiac arrhythmia, unspecified (3) BPH (benign prostatic hyperplasia) ICD Code: N40.0 - Benign prostatic hyperplasia without lower urinary tract symptoms (4) Hyperlipidemia ICD Code: E78.5 - Hyperlipidemia, unspecified (5) Hyperglycemia ICD Code: R73.9 - Hyperglycemia, unspecified (6) MARGARITO (acute kidney injury) ICD Code: N17.9 - Acute kidney failure, unspecified History of Present Illness 81y.o male s/p right knee replacement last week Thursday, since surgery he developed urinary retention due to BPH. He was managed with condom catheter and str cath but damon catheter was inserted on Thursday05/31/17. Damon is currently in place and draining clear yellow urine. He admits having BPH with LUTS ( frequency, weak FOS and hesitancy) for the past 3-4years and saw at another states who offered TURP but it was never done. He is usually taking flomax at home daily. Denies any other issues. he is ready to be d/c by primary team once cleared by Review of Systems Except as stated in HPI: all other systems reviewed are Neg Past Family Social History Past Medical History 1. BPH. 2. Lumbar stenosis. 3. Hiatal hernia. 4. Osteoarthritis Past Surgical History 1. Left knee replacement on June 13, 2015. Allergies: Coded Allergies: penicillin G (Unverified Allergy, Severe, RASH, 05/15/17) Family History Patient states that his father had 3 MIs between the age of 60 and 75. However , he states that he from complications due to diabetes and gangrene. Social History The patient is a former smoker he quit smoking cigarettes many years ago. The patient denies alcohol intake. Patient also denies illicit drug use Physical Exam Vital Signs Date Time Temp Pulse Resp B/P (MAP) Pulse Ox O2 Delivery O2 Flow Rate FiO2 06/02/17 10:17 83 130/71 (90) 06/02/17 08:00 99.2 82 18 116/58 (77) 92 06/02/17 07:40 Room Air 2/27/18 04:00 97.4 56 14 114/59 (77) 93 06/02/17 00:00 98.3 65 15 117/62 (80) 93 06/01/17 20:00 97.8 62 15 126/61 (82) 97 06/01/17 16:00 97.9 60 17 109/59 (76) 95 Physical Exam GENERAL: This is a well-nourished, well-developed patient, in no apparent distress. CARDIOVASCULAR: Regular rate and rhythm without murmurs, gallops, or rubs. RESPIRATORY: Clear to auscultation. Breath sounds equal bilaterally. No wheezes , rales, or rhonchi. GASTROINTESTINAL: Abdomen soft, non-tender, nondistended. No hepato-splenomegaly , or palpable masses. No guarding. GENITOURINARY: Normal exam. Damon is in place NEUROLOGICAL: Awake and alert.s. Normal speech. Lab results reviewed: Yes Laboratory Tests Test 06/02/17 06:52 Iron Level 53 Total Iron Binding Capacity 238 Percent Iron Saturation 22.3 Transferrin 170 Vitamin B12 Level 1079 Date/Time Source Procedure Growth Status 05/31/17 10:30 Stool Stool Stool Occult Blood (LAKSHMI) - Final HEMOCCULT NEGATIVE Complete Result Diagram: 06/01/17 0533 06/01/17 0533 Imaging Last Impressions Liver Ultrasound 05/31/17 0000 Signed Impressions: Service Date/Time: Wednesday, May 31, 2017 15:43 - CONCLUSION: 1. Trace free fluid between right kidney and liver. 8 mm cyst right kidney. Incidental 5 cm cyst left kidney. No gallstones or biliary ductal dilatation. Justin Kelly MD Renal Ultrasound 05/28/17 0000 Signed Impressions: Service Date/Time: May 14:33 - CONCLUSION: 1. Dilation of the collecting system bilaterally suggesting moderate bilateral hydronephrosis. 2. Significant postvoid residual with no change in bladder volume pre-and postvoid. Yariel Mckeon MD Knee X-Ray 05/27/17 1139 Signed Impressions: Service Date/Time: Saturday, May 27, 2017 12:34 - CONCLUSION: Expected postsurgical changes status post total knee arthroplasty. Yariel Mckeon MD Assessment and Plan Assessment and Plan 81y.o. M with urinary retention post rt knee replacement last week - Continue care as per primary team - Keep damon catheter in - Pt can be d/c home [place] with damon catheter and Rx for Flomax BID - Pt to follow up next week at our clinic with Dr Garcia for voiding trial and further management of BPH Discussed Condition With Dr Radha STEVEN attending who agrees with this plan Problem Qualifiers (1) Cardiac dysrhythmia: Qualified Codes: I49.8 - Other specified cardiac arrhythmias (2) BPH (benign prostatic hyperplasia): Qualified Codes: N40.0 - Benign prostatic hyperplasia without lower urinary tract symptoms (3) Hyperlipidemia: Qualified Codes: E78.5 - Hyperlipidemia, unspecified Keon Underwood Jun 02, 2017 12:12
--- NOTE | 2017-06-02 12:49 | HHI.PR ---
Subjective Remarks Patient is very concerned about the Spears catheter. At this time he does not want discontinued Had pain with urinary retention and did not like that Could possibly be discharged later today with home healthcare pending urology consult Patient wants to go home and wants to keep his Spears catheter Objective Vitals Vital Signs Date Time Temp Pulse Resp B/P (MAP) Pulse Ox O2 Delivery O2 Flow Rate FiO2 06/02/17 10:17 83 130/71 (90) 06/02/17 08:00 99.2 82 18 116/58 (77) 92 06/02/17 07:40 Room Air 06/02/17 04:00 97.4 56 14 114/59 (77) 93 06/02/17 00:00 98.3 65 15 117/62 (80) 93 06/01/17 20:00 97.8 62 15 126/61 (82) 97 06/01/17 16:00 97.9 60 17 109/59 (76) 95 I/O 06/01/17 06/01/17 06/01/17 06/02/17 06/02/17 06/02/17 07:00 15:00 23:00 07:00 15:00 23:00 Intake Total 480 ml 480 ml 400 ml Output Total 450 ml 425 ml 300 ml 2000 ml Balance 30 ml 55 ml 100 ml -2000 ml Intake Oral 480 ml 480 ml 400 ml Output Urine Total 450 ml 425 ml 300 ml 2000 ml # Bowel Movements 0 1 Result Diagram: 06/01/17 0533 06/01/17 0533 Other Results Laboratory Tests Test 05/31/17 05:30 05/31/17 11:35 06/01/17 05:33 06/02/17 06:52 Calcium Level 8.8 MG/DL 8.1 MG/DL Haptoglobin 108 MG/DL Lactate Dehydrogenase 262 U/L Hepatitis B Surface Antigen NEGATIVE Hepatitis B Core IgM Antibody NEGATIVE Hepatitis C Antibody NEGATIVE HIV (1&2) Antibody NEGATIVE White Blood Count 3.7 TH/MM3 Red Blood Count 2.35 MIL/MM3 Hemoglobin 8.0 GM/DL Hematocrit 22.6 % Mean Corpuscular Volume 96.3 FL Mean Corpuscular Hemoglobin 34.1 PG Mean Corpuscular Hemoglobin Concent 35.4 % Red Cell Distribution Width 13.7 % Platelet Count 89 TH/MM3 Mean Platelet Volume 8.4 FL Blood Urea Nitrogen 12 MG/DL Creatinine 0.65 MG/DL Random Glucose 102 MG/DL Sodium Level 142 MEQ/L Potassium Level 3.5 MEQ/L Chloride Level 107 MEQ/L Carbon Dioxide Level 29.3 MEQ/L Anion Gap 6 MEQ/L Estimat Glomerular Filtration Rate 118 ML/MIN Iron Level 53 MCG/DL Total Iron Binding Capacity 238 MCG/DL Percent Iron Saturation 22.3 % Transferrin 170 MG/DL Vitamin B12 Level 1079 PG/ML Imaging Last Impressions Liver Ultrasound 05/31/17 0000 Signed Impressions: Service Date/Time: Wednesday, May 31, 2017 15:43 - CONCLUSION: 1. Trace free fluid between right kidney and liver. 8 mm cyst right kidney. Incidental 5 cm cyst left kidney. No gallstones or biliary ductal dilatation. Justin Kelly MD Renal Ultrasound 05/28/17 0000 Signed Impressions: Service Date/Time: May 14:33 - CONCLUSION: 1. Dilation of the collecting system bilaterally suggesting moderate bilateral hydronephrosis. 2. Significant postvoid residual with no change in bladder volume pre-and postvoid. Yariel Mckeon MD Knee X-Ray 05/27/17 1139 Signed Impressions: Service Date/Time: Saturday, May 27, 2017 12:34 - CONCLUSION: Expected postsurgical changes status post total knee arthroplasty. Yariel Mckeon MD Objective Remarks GENERAL: Awake alert oriented 3 supple talkative and cooperative SKIN: Warm and dry. HEAD: Atraumatic. Normocephalic. EYES: Pupils equal and round. No scleral icterus. No injection or drainage. Extraocular muscles intact ENT: No nasal bleeding or discharge. Mucous membranes pink and moist. Tongue is midline NECK: Trachea midline. No JVD. Supple CARDIOVASCULAR: Regular rate and rhythm. S1 and S2 no S3 or S4 RESPIRATORY: No accessory muscle use. Clear to auscultation. Breath sounds equal bilaterally. GASTROINTESTINAL: Abdomen soft, non-tender, nondistended. Hepatic and splenic margins not palpable. MUSCULOSKELETAL: Extremities without clubbing, cyanosis, or edema. No obvious deformities. Left knee incision is clean dry and intact NEUROLOGICAL: Awake and alert. No obvious cranial nerve deficits. Motor grossly within normal limits. Five out of 5 muscle strength in the arms and legs. Normal speech. PSYCHIATRIC: Appropriate mood and affect; insight and judgment normal. Spears catheter is in place Medications and IVs Current Medications Lactated Ringer's 1,000 ml @ 30 mls/hr Q24H PRN IV SEE LABEL COMMENTS Last administered on 05/27/17at 07:41; Start 05/27/17 at 07:45; Stop 05/28/17 at 13:30 ; Status DC Sodium Chloride 500 ml @ 30 mls/hr [id number] PRN IV SEE LABEL COMMENTS; Start at 07:45; Stop 05/28/17 at 13:30; Status DC Metoprolol Tartrate (Lopressor) 25 mg COLORIST PHOTOGRAPHY PRN PO SEE LABEL COMMENTS; Start 05/27/17 at 07:45; Stop 05/30/17 at 07:44; Status DC Povidone Iodine (Betadine 5% Antisepsis Kit) 1 applic COLORIST PHOTOGRAPHY PRN EACH NARE SEE LABEL COMMENTS Last administered on 05/27/17at 07:41; Start 05/27/17 at 07:45 ; Stop 05/30/17 at 07:44; Status DC Chlorhexidine Gluconate (Chlorhexidine 2% Cloth) 3 pack COLORIST PHOTOGRAPHY PRN TOPICAL SEE LABEL COMMENTS Last administered on 05/27/17at 07:41; Start 05/27/17 at 07:45 ; Stop 05/30/17 at 07:44; Status DC Povidone Iodine (Betadine 7.5% Scrub) 1 applic ONCE TOPICAL ; Start 05/27/17 at 07:45; Stop 05/30/17 at 07:44; Status DC Vancomycin HCl 1000 mg/Sodium Chloride 250 ml @ 250 mls/hr COLORIST PHOTOGRAPHY IV Last administered on 05/27/17at 09:34; Start 05/27/17 at 07:45; Stop 05/30/17 at 07:44 ; Status DC Ropivacaine 24.63 ml/Ketorolac Tromethamine 30 mg/Epinephrine HCl 0.5 mg/ Clonidine 80 mcg/ Sodium Chloride 100 ml @ 200 mls/hr UNSCH X1 P-ARTICULR Last administered on 05/27/17at 10:51; Start 05/27/17 at 08:00; Stop 05/27/17 at 14:00; Status DC Dexamethasone Sodium Phosphate (Decadron Inj) 10 mg COLORIST PHOTOGRAPHY IV Last administered on 05/27/17at 08:07; Start 05/27/17 at 08:00; Stop 05/27/17 at 23:59 ; Status DC Tranexamic Acid 659 mg/Sodium Chloride 106.59 ml @ 200 mls/ hr COLORIST PHOTOGRAPHY IV Last administered on 05/27/17at 10:16; Start 05/27/17 at 08:00; Stop 05/27/17 at 14:00; Status DC Cefazolin Sodium/ Dextrose 50 ml @ As Directed STK-MED ONCE .ROUTE ; Start 05/27 at 08:12; Stop 05/27/17 at 08:13; Status DC Fentanyl Citrate (fentaNYL INJ) 100 mcg STK-MED ONCE .ROUTE ; Start 05/27/17 at 08:16; Stop 05/27/17 at 08:17; Status DC Midazolam HCl (Versed Inj) 4 mg STK-MED ONCE .ROUTE ; Start 05/27/17 at 08:17; Stop 05/27/17 at 08:18; Status DC Bupivacaine Liposome (Exparel Pf 1.3% Inj) 20 ml STK-MED ONCE .ROUTE ; Start at 08:17; Stop 05/27/17 at 08:18; Status DC Cefazolin Sodium/ Dextrose 50 ml @ 100 mls/hr COLORIST PHOTOGRAPHY IV Last administered on 05/27/17at 10:05; Start 05/27/17 at 08:30; Stop 05/30/17 at 08:29; Status DC Acetaminophen 100 ml @ As Directed STK-MED ONCE IV ; Start 05/27/17 at 09:12; Stop 05/27/17 at 09:13; Status DC Famotidine (Pepcid Inj) 20 mg STK-MED ONCE .ROUTE ; Start 05/27/17 at 09:12; Stop 05/27/17 at 09:13; Status DC Gentamicin Sulfate (Gentamicin Inj) 240 mg STK-MED ONCE .ROUTE Last administered on 05/27/17at 10:41; Start 05/27/17 at 09:28; Stop 05/27/17 at 09:29 ; Status DC Atorvastatin Calcium (Lipitor) 10 mg HS PO Last administered on 06/01/17at 22:40 ; Start 05/27/17 at 21:00 Lorazepam (Ativan) 0.5 mg HS PRN PO ANXIETY AND/OR INSOMNIA; Start 05/27/17 at 21:00 Tamsulosin HCl (Flomax) 0.4 mg HS PO Last administered on 05/30/17at 19:52; Start 05/27/17 at 21:00; Stop 05/31/17 at 07:38; Status DC Sodium Chloride 1,000 ml @ 100 mls/hr Q10H IV Last administered on 05/27/17at 00:14; Start 05/27/17 at 11:39; Stop 05/28/17 at 13:30; Status DC Cefazolin Sodium 1000 mg/Sodium Chloride 100 ml @ 200 mls/hr Q6H IV Last administered on 05/28/17at 03:18; Start 05/27/17 at 16:00; Stop 05/28/17 at 04:29 ; Status DC Miscellaneous Information (Post-op Orders (for Pharmacy)) STAT ONCE XX ; Start 05/27/17 at 11:45; Stop 05/27/17 at 12:17; Status DC Dexamethasone Sodium Phosphate (Decadron Inj) 10 mg ONCE ONCE IV Last administered on 05/28/17at 08:18; Start 05/28/17 at 07:45; Stop 05/28/17 at 07:46 ; Status DC Enoxaparin Sodium (Lovenox Inj) 40 mg Q24H SQ Last administered on 05/28/17at 10 :31; Start 05/28/17 at 11:00; Stop 05/29/17 at 13:51; Status DC Acetaminophen/ Hydrocodone Bitart ([place] 5-325 Mg) 1 tab Q4H PRN PO PAIN LESS THAN 5 ON SCALE Last administered on 05/31/17at 00:53; Start 05/27/17 at 11:45 Acetaminophen/ Hydrocodone Bitart ([place] 5-325 Mg) 2 tab Q4H PRN PO PAIN SCALE 5 TO 10; Start 05/27/17 at 11:45 Tranexamic Acid 659 mg/Sodium Chloride 106.59 ml @ 200 mls/ hr UNSCH IV ; Start 05/27/17 at 13:00; Stop 05/27/17 at 19:00; Status DC Multivitamins/ Minerals Therapeutic (Theragran M Tab) 1 tab BID PO Last administered on 06/02/17at 10:12; Start 05/28/17 at 21:00; Stop 07/27/17 at 20:59 Ondansetron HCl (Zofran Inj) 4 mg Q6H PRN IVP NAUSEA OR VOMITING; Start at 11:45 Docusate Sodium (Colace) 100 mg BID PO Last administered on 06/02/17at 10:12; Start 05/28/17 at 21:00 Al Hydrox/Mg Hydrox/Simethicone (Mag-Al Plus Susp Liq) 30 ml Q6H PRN PO INDIGESTION; Start 05/27/17 at 11:45 Zolpidem Tartrate (Ambien) 5 mg HS PRN PO SLEEP Last administered on 06/01/17at 22:43; Start 05/27/17 at 21:00 Bisacodyl (Dulcolax Supp) 10 mg DAILY PRN RECTAL CONSTIPATION; Start 05/27/17 at 11:45 Magnesium Hydroxide (Milk Of Magnesia Liq) 30 ml DAILY PRN PO CONSTIPATION Last administered on 06/01/17at 12:41; Start 05/27/17 at 11:45 Naloxone HCl (Narcan Inj) 0.4 mg UNSCH PRN IV PUSH RESPIRATORY RATE LESS THAN 10; Start 05/27/17 at 11:45 Diphenhydramine HCl (Benadryl Inj) 25 mg Q6H PRN IV PUSH ITCHING; Start at 11:45 Morphine Sulfate (Morphine Inj) 2 mg Q3H PRN IV PUSH pain greater than 5; Start 05/27/17 at 11:45 Sugammadex Sodium ([place]ion Inj) 200 mg STK-MED ONCE IV PUSH ; Start 05/27/17 at 11:59; Stop 05/27/17 at 12:00; Status DC Fentanyl Citrate (fentaNYL INJ) 100 mcg STK-MED ONCE .ROUTE ; Start 05/27/17 at 12:22; Stop 05/27/17 at 12:23; Status DC Fentanyl Citrate (fentaNYL INJ) 100 mcg STK-MED ONCE .ROUTE ; Start 05/27/17 at 12:22; Stop 05/27/17 at 12:23; Status DC Miscellaneous Information ALL NURSING DEPARTME... UNSCH PRN .XX SEE LABEL COMMENTS; Start 05/27/17 at 12:07; Stop 05/28/17 at 12:06; Status DC Magnesium Sulfate/ Dextrose 200 ml @ As Directed STK-MED ONCE .ROUTE ; Start at 16:46; Stop 05/27/17 at 16:47; Status DC Magnesium Sulfate/ Dextrose 100 ml @ 100 mls/hr Q1H IV Last administered on at 17:50; Start 05/27/17 at 17:00; Stop 05/27/17 at 18:59; Status DC Metoprolol Tartrate (Lopressor) 12.5 mg ONCE ONCE PO Last administered on 05/28at 10:31; Start 05/28/17 at 10:10; Stop 05/28/17 at 10:11; Status DC Miscellaneous (Pill Splitter) 1 ea UNSCH PRN OTHER SEE LABEL COMMENTS; Start at 10:15 Lactated Ringer's 1,000 ml @ As Directed STK-MED ONCE IV ; Start 05/27/17 at 12 :00; Stop 05/28/17 at 13:11; Status DC Lidocaine HCl (Xylocaine-Mpf 1% Inj) 5 ml STK-MED ONCE OTHER ; Start 05/27/17 at 12:00; Stop 05/28/17 at 13:11; Status DC Rocuronium [place] (Zemuron Inj) 50 mg STK-MED ONCE IV PUSH ; Start 05/27/17 at 12:00; Stop 05/28/17 at 13:11; Status DC Neostigmine Methylsulfate (Prostigmine Inj) 5 mg STK-MED ONCE IV PUSH ; Start at 12:00; Stop 05/28/17 at 13:11; Status DC Glycopyrrolate (Robinul Inj) 1 mg STK-MED ONCE IV PUSH ; Start 05/27/17 at 12:00 ; Stop 05/28/17 at 13:11; Status DC Phenylephrine HCl (Neosynephrine/ NS 1000 Mcg/10ml Syr) 1,000 mcg STK-MED ONCE IV ; Start 05/27/17 at 12:00; Stop 05/28/17 at 13:11; Status DC Ephedrine Sulfate (ePHEDrine/NS 25 MG/5 ML SYR) 25 mg STK-MED ONCE IV ; Start at 12:00; Stop 05/28/17 at 13:11; Status DC Ondansetron HCl (Zofran Inj) 4 mg STK-MED ONCE IV ; Start 05/27/17 at 12:00; Stop 05/28/17 at 13:11; Status DC Propofol (Diprivan 200 Mg/20 ml Inj) 200 mg STK-MED ONCE IV ; Start 05/27/17 at 12:00; Stop 05/28/17 at 13:11; Status DC Dextrose (D50w (Vial) Inj) 50 ml UNSCH PRN IV PUSH HYPOGLYCEMIA-SEE COMMENTS; Start 05/28/17 at 13:30 Glucagon (Glucagon Inj) 1 mg UNSCH PRN OTHER HYPOGLYCEMIA-SEE COMMENTS; Start 05/28/17 at 13:30 Insulin Aspart (NovoLOG SUPPLEMENTAL SCALE) 1 ACHS SLIDING SCALE SQ Last administered on 05/30/17at 12:48; Start 05/28/17 at 17:00; Stop 05/31/17 at 07:37 ; Status DC Sodium Chloride 1,000 ml @ 84 mls/hr [id number] IV Last administered on at 21:49; Start 05/28/17 at 13:30; Stop 05/31/17 at 07:37; Status DC Heparin Sodium/ Sodium Chloride 1,000 ml @ As Directed STK-MED ONCE IV FLUSH Last administered on 05/29/17at 11:45; Start 05/29/17 at 11:45; Stop 05/29/17 at 11:46; Status DC Heparin Sodium (Porcine) (Heparin Inj) 10,000 units STK-MED ONCE .ROUTE ; Start 05/29/17 at 11:45; Stop 05/29/17 at 11:46; Status DC Midazolam HCl (Versed Inj) 2 mg STK-MED ONCE .ROUTE ; Start 05/29/17 at 12:28; Stop 05/29/17 at 12:29; Status DC Fentanyl Citrate (fentaNYL INJ) 100 mcg STK-MED ONCE .ROUTE ; Start 05/29/17 at 12:28; Stop 05/29/17 at 12:29; Status DC Heparin Sodium (Porcine) (Heparin Inj) 10,000 units STK-MED ONCE .ROUTE ; Start 05/29/17 at 12:58; Stop 05/29/17 at 12:59; Status DC Sodium Chloride (NS Flush) 2 ml BID IV FLUSH Last administered on 06/02/17at 10: 17; Start 05/29/17 at 21:00 Sodium Chloride (NS Flush) 2 ml UNSCH PRN IV FLUSH FLUSH AFTER USING IV ACCESS ; Start 05/29/17 at 14:00 Miscellaneous Information 1 ONCE ONCE XX ; Start 05/29/17 at 14:00; Stop at 14:01; Status DC Bacitracin (Bacitracin Oint Packet) 0.9 gm ONCE ONCE TOP ; Start 05/29/17 at 14 :00; Stop 05/29/17 at 14:01; Status DC Iohexol (OMNIPAQUE 350 INJ (Dairy Clerk)) 100 ml STK-MED ONCE OTHER ; Start at 15:56; Stop 05/29/17 at 15:57; Status DC Enoxaparin Sodium (Lovenox Inj) 40 mg Q24H SQ Last administered on 05/30/17at 06 :27; Start 05/30/17 at 06:00; Stop 05/30/17 at 18:38; Status DC Calcium Gluconate 1 gm/Sodium Chloride 110 ml @ 110 mls/hr ONCE ONCE IV Last administered on 05/30/17at 12:34; Start 05/30/17 at 13:00; Stop 05/30/17 at 13:59 ; Status DC Diltiazem HCl (Cardizem Cd) 180 mg DAILY PO Last administered on 06/02/17at 10: 12; Start 05/30/17 at 12:00 Calcium Carbonate (Oscal) 1,000 mg BID PO Last administered on 06/02/17at 10:11 ; Start 05/30/17 at 12:00 Aspirin (Aspirin Chew) 81 mg BID PO Last administered on 06/02/17at 10:12; Start 05/30/17 at 21:00 Tamsulosin HCl (Flomax) 0.4 mg BID PO Last administered on 06/02/17at 10:12; Start 05/31/17 at 09:00 Ramipril (Altace) 2.5 mg ONCE ONCE PO Last administered on 05/31/17at 08:59; Start 05/31/17 at 08:00; Stop 05/31/17 at 08:01; Status DC Ramipril (Altace) 2.5 mg DAILY PO Last administered on 06/02/17at 10:12; Start 06/01/17 at 09:00 Urinary Catheter: Yes Assessment to: Continue Spears insert reason: Obstruction/Retention A/P Problem List: (1) Status post total knee replacement, right ICD Code: Z96.651 - Presence of right artificial knee joint (2) Cardiac dysrhythmia ICD Code: I49.9 - Cardiac arrhythmia, unspecified (3) BPH (benign prostatic hyperplasia) ICD Code: N40.0 - Benign prostatic hyperplasia without lower urinary tract symptoms (4) Hyperlipidemia ICD Code: E78.5 - Hyperlipidemia, unspecified Status: Chronic (5) Hyperglycemia ICD Code: R73.9 - Hyperglycemia, unspecified (6) MARGARITO (acute kidney injury) ICD Code: N17.9 - Acute kidney failure, unspecified Assessment and Plan 81-year-old male admitted for a right knee replacement. Tachycardia dysrhythmia after right knee replacement.-HAs been cleared by cardiology Continue to workup thrombocytopenia. Cardiac rhythm has remained stable. Cleared by cardiology. 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 Monitor CBC Hyperlipidemia Continue present treatment Follow as an outpatient Acute kidney injury Follow renal function Avoid nephrotoxins Bilateral hydronephrosis probably due to prostate --has improved on repeat ultrasound DVT Prophylaxis Lovenox Discharge Planning Pending clearance by urology Problem Qualifiers (1) Cardiac dysrhythmia: Qualified Codes: I49.8 - Other specified cardiac arrhythmias (2) BPH (benign prostatic hyperplasia): Qualified Codes: N40.0 - Benign prostatic hyperplasia without lower urinary tract symptoms (3) Hyperlipidemia: Qualified Codes: E78.5 - Hyperlipidemia, unspecified Silvio Rhodes DO Jun 02, 2017 12:49
[2017-06-02] MEDS ORDERED: CARD180C5 PO (12:53)
[2017-06-02] MEDS ORDERED: TAMS5CAP PO (12:53)
[2017-06-02] MEDS ORDERED: ASPI81 PO (12:53)
[2017-06-02] MEDS ORDERED: RAMI2.5C PO (12:53)
[2017-06-02] MEDS ORDERED: CALC500 PO (12:53)
[2017-06-02] MEDS ORDERED: DOCU1CAP39 PO (12:53)
--- NOTE | 2017-06-02 13:02 | PD.CARD.PN ---
Subjective Subjective Remarks alert in nad Objective Medications Current Medications Medications (Trade) Dose Ordered Sig/Fili Route Start Time Stop Time Status Last Admin (Lipitor) 10 mg HS PO 05/27/17 21:00 06/01/17 22:40 (Ativan) 0.5 mg HS PRN PO 05/27/17 21:00 ([place] 5-325 Mg) 1 tab Q4H PRN PO 05/27/17 11:45 05/31/17 00:53 ([place]eds 5-325 Mg) 2 tab Q4H PRN PO 05/27/17 11:45 (Theragran M Tab) 1 tab BID PO 05/28/17 21:00 07/27/17 20:59 06/02/17 10:12 (Zofran Inj) 4 mg Q6H PRN IVP 05/27/17 11:45 (Colace) 100 mg BID PO 05/28/17 21:00 06/02/17 10:12 (Mag-Al Plus Susp Liq) 30 ml Q6H PRN PO 05/27/17 11:45 (Ambien) 5 mg HS PRN PO 05/27/17 21:00 06/01/17 22:43 (Dulcolax Supp) 10 mg DAILY PRN RECTAL 05/27/17 11:45 (Milk Of Magnesia Liq) 30 ml DAILY PRN PO 05/27/17 11:45 06/01/17 12:41 (Narcan Inj) 0.4 mg UNSCH PRN IV PUSH 05/27/17 11:45 (Benadryl Inj) 25 mg Q6H PRN IV PUSH 05/27/17 11:45 (Morphine Inj) 2 mg Q3H PRN IV PUSH 05/27/17 11:45 (Pill Splitter) 1 ea UNSCH PRN OTHER 05/28/17 10:15 (D50w (Vial) Inj) 50 ml UNSCH PRN IV PUSH 05/28/17 13:30 (Glucagon Inj) 1 mg UNSCH PRN OTHER 05/28/17 13:30 (NS Flush) 2 ml BID IV FLUSH 05/29/17 21:00 06/02/17 10:17 (NS Flush) 2 ml UNSCH PRN IV FLUSH 05/29/17 14:00 (Cardizem Cd) 180 mg DAILY PO 05/30/17 12:00 06/02/17 10:12 (Oscal) 1,000 mg BID PO 05/30/17 12:00 06/02/17 10:11 (Aspirin Chew) 81 mg BID PO 05/30/17 21:00 06/02/17 10:12 (Flomax) 0.4 mg BID PO 05/31/17 09:00 06/02/17 10:12 (Altace) 2.5 mg DAILY PO 06/01/17 09:00 06/02/17 10:12 Vital Signs / I&O Vital Signs Date Time Temp Pulse Resp B/P (MAP) Pulse Ox O2 Delivery O2 Flow Rate FiO2 06/02/17 12:00 98.5 55 18 99/54 (69) 99 06/02/17 10:17 83 130/71 (90) 06/02/17 08:00 75 06/02/17 08:00 99.2 82 18 116/58 (77) 92 06/02/17 07:40 Room Air 06/02/17 04:00 97.4 56 14 114/59 (77) 93 06/02/17 00:00 98.3 65 15 117/62 (80) 93 06/01/17 20:00 97.8 62 15 126/61 (82) 97 06/01/17 16:00 97.9 60 17 109/59 (76) 95 I/O 06/01/17 06/01/17 06/01/17 06/02/17 06/02/17 06/02/17 07:00 15:00 23:00 07:00 15:00 23:00 Intake Total 480 ml 480 ml 400 ml Output Total 450 ml 425 ml 300 ml 2000 ml Balance 30 ml 55 ml 100 ml -2000 ml Intake Oral 480 ml 480 ml 400 ml Output Urine Total 450 ml 425 ml 300 ml 2000 ml # Bowel Movements 0 1 Physical Exam GENERAL: SKIN: Warm and dry. HEAD: Normocephalic. EYES: No scleral icterus. No injection or drainage. NECK: Supple, trachea midline. No JVD or lymphadenopathy. CARDIOVASCULAR: Regular rate and rhythm without murmurs, gallops, or rubs. RESPIRATORY: Breath sounds equal bilaterally. No accessory muscle use. GASTROINTESTINAL: Abdomen soft, non-tender, nondistended. MUSCULOSKELETAL: No cyanosis, or edema. BACK: Nontender without obvious deformity. No CVA tenderness. Laboratory Laboratory Tests Test 06/02/17 06:52 Iron Level 53 MCG/DL Total Iron Binding Capacity 238 MCG/DL Percent Iron Saturation 22.3 % Transferrin 170 MG/DL Vitamin B12 Level 1079 PG/ML Assessment and Plan Problem List: (1) CAD (coronary artery disease) ICD Codes: I25.10 - Atherosclerotic heart disease of inupiat coronary artery without angina pectoris (2) Cardiomyopathy ICD Codes: I42.9 - Cardiomyopathy, unspecified (3) Wide-complex tachycardia ICD Codes: I47.2 - Ventricular tachycardia (4) Anemia ICD Codes: D64.9 - Anemia, unspecified (5) Thrombocytopenia ICD Codes: D69.6 - Thrombocytopenia, unspecified (6) Cardiac dysrhythmia ICD Codes: I49.9 - Cardiac arrhythmia, unspecified (7) Status post total knee replacement, right ICD Codes: Z96.651 - Presence of right artificial knee joint Assessment and Plan 1.) CAD - assymptomatic, continue lipitor, aspirin 81 mg qd, f/u with me in my office 06/02/17, d/w nurse and patient at bedside; 2.) Wide complex tachycardia - improved on cardizem 3.) anemia/thrombocytopenia - hematology evaluating 4.) bladder outlet obstruction - damon in place Problem Qualifiers (1) Cardiac dysrhythmia: Qualified Codes: I49.8 - Other specified cardiac arrhythmias Richar Campbell MD Jun 02, 2017 13:02
--- NOTE | 2017-06-02 20:53 | HHI.DS ---
Discharge Summary Admission Date May 27, 2017 at 06:43 Discharge Date: Jun 02, 2017 Admitting Diagnosis Primary localized OA, lower leg Status post total knee replacement, right Diagnosis: (1) Primary localized osteoarthrosis, lower leg Diagnosis: Principal ICD Codes: M17.10 - Unilateral primary osteoarthritis, unspecified knee (2) Status post total knee replacement, right Diagnosis: Principal ICD Codes: Z96.651 - Presence of right artificial knee joint Procedures Right TKA Brief History This is a 81 year old male patient with severe OA of the right knee. CBC/BMP: 06/01/17 0533 06/01/17 0533 Significant Findings Laboratory Tests Test 05/31/17 05:30 05/31/17 11:35 06/01/17 05:33 06/02/17 06:52 Lactate Dehydrogenase 262 U/L (87-241) White Blood Count 3.7 TH/MM3 (4.0-11.0) Red Blood Count 2.35 MIL/MM3 (4.50-5.90) Hemoglobin 8.0 GM/DL (13.0-17.0) Hematocrit 22.6 % (39.0-51.0) Mean Corpuscular Hemoglobin 34.1 PG (27.0-34.0) Platelet Count 89 TH/MM3 (150-450) Calcium Level 8.1 MG/DL (8.5-10.1) Iron Level 53 MCG/DL (65-175) Total Iron Binding Capacity 238 MCG/DL (250-450) Transferrin 170 MG/DL (200-360) Vitamin B12 Level 1079 PG/ML (193-986) PE at Discharge Dressing is C/D/I. min swelling, no erythema. He moves his toes and ankle freely. He denies calf pain. + SILT Spears cath in place. Hospital Course The patient was admitted to the hospital for severe OA of the right knee to have a right TKA. The patient's surgery went well with no complications. The patient was placed on Lovenox followed by ASA for DVT prophylaxis. The patient ended up having an irregular HR post operatively and had a cardiac cath with full cardiac work-up. The patient also ended up having urinary retention and had a Spears cath placed. The patient was discharged with a catheter and will f/ u with urology and cardiology. The patient was discharged with home health and will f/u in the office with Dr. Forde or STEFANIE Neil as previously scheduled. Pt Condition on Discharge: Stable Discharge Disposition: Disch w/ Home Health Serv Discharge Instructions Diet Instructions: As Tolerated, No Restrictions Activities You Can Perform: Weight Bearing as Renée Activities to Avoid: Strenuous Activity Follow up Referrals: Orthopedics with Otto Fored MD Urology - 1 Week with Srinivas Garcia MD Please make a one week follow up appointment. New Medications: Commode 3-in-1 (Commode 3-in-1) 1 Mis Mis EA .XX DIRECTED, #1 0 Refills CPM-Continuous Passive Motion Machine (CPM-Continuous Passive Motion Machine) 1 Ea Device EA .XX DIRECTED, #1 0 Refills Walker with Front Wheels (Walker with Front Wheels) 1 Mis Mis EA .XX DIRECTED, #1 0 Refills Aspirin (Tgt Aspirin) 81 Mg Chw 81 MG PO BID for Blood Clot Prevention, #60 EA Diltiazem CD 24 HR (Cardizem CD 24 HR) 180 Mg Caper 180 MG PO DAILY for Blood Pressure Management, #30 CAP Docusate Sodium (Dok) 100 Mg Cap 100 MG PO BID for Constipation, #90 CAP Oyster Shell (Oyster Calcium) 500 Mg Calcium (1250 Mg) Tab 1000 MG PO BID for Calcium Supplement, #120 TAB Ramipril (Ramipril) 2.5 Mg Cap 2.5 MG PO DAILY for Blood Pressure Management, #30 CAP Tamsulosin (Flomax) 0.4 Mg Cap 0.4 MG PO BID for Manage Prostate Problems, #60 CAP Continued Medications: Atorvastatin (Atorvastatin) 10 Mg Tab 10 MG PO HS for Cholesterol Management, #30 TAB 0 Refills Cholecalciferol (D-2000 Maximum Strength) 2,000 Unit Tab 2000 UNITS PO DAILY for Nutritional Supplement, #30 TAB 0 Refills Lorazepam (Lorazepam) 0.5 Mg Tab 0.5 MG PO HS PRN for ANXIETY AND/OR INSOMNIA, TAB 0 Refills Multiple Vitamins W/ Minerals (Preservision Areds) 1 Tab 1 TAB PO DAILY for Nutritional Supplement, TAB 0 Refills Discontinued Medications: [place]-3 Fatty Acids (Fish Oil 1200 mg) 360 Mg-1,200 Mg Cap 1 TAB PO DAILY Tamsulosin (Tamsulosin) 0.4 Mg Cap 0.4 MG PO HS for Manage Prostate Problems, #30 CAP 0 Refills Ten Raza Jun 02, 2017 20:53
== END 2017-06-02 16:37 | disposition home health service (06) | DRG 470 ==
LOC: HSDI 06:43 → N06B 17:41 → HCIS 05-28 19:00 → N06A 05-31 21:49
PROVIDERS: ADMIT Orthopaedic Surgery; ATTEND Orthopaedic Surgery
PROC: 0SRC0J9 Replacement of Right Knee Joint with Synthetic Substitute, Cemented, Open Approach (ICD-10-PCS; principal; 2017-05-27 09:48)
PROC: 4A023N8 Measurement of Cardiac Sampling and Pressure, Bilateral, Percutaneous Approach (ICD-10-PCS; 2017-05-29)
PROC: B2151ZZ Fluoroscopy of Left Heart using Low Osmolar Contrast (ICD-10-PCS; 2017-05-29)
PROC: B2111ZZ Fluoroscopy of Multiple Coronary Arteries using Low Osmolar Contrast (ICD-10-PCS; 2017-05-29)
PROC: 0T9B70Z Drainage of Bladder with Drainage Device, Via Natural or Artificial Opening (ICD-10-PCS; 2017-05-29)
DX: M17.11 Unilateral primary osteoarthritis, right knee (principal); I47.2 Ventricular tachycardia; N17.9 Acute kidney failure, unspecified; D69.3 Immune thrombocytopenic purpura; I42.9 Cardiomyopathy, unspecified; D62 Acute posthemorrhagic anemia; N13.30 Unspecified hydronephrosis; I08.1 Rheumatic disorders of both mitral and tricuspid valves; R00.1 Bradycardia, unspecified; E78.5 Hyperlipidemia, unspecified; I25.10 Atherosclerotic heart disease of native coronary artery without angina pectoris; T44.7X5A Adverse effect of beta-adrenoreceptor antagonists, initial encounter; Z96.652 Presence of left artificial knee joint; N40.1 Benign prostatic hyperplasia with lower urinary tract symptoms; M48.061 Spinal stenosis, lumbar region without neurogenic claudication; R33.8 Other retention of urine; R73.9 Hyperglycemia, unspecified; I10 Essential (primary) hypertension; N32.0 Bladder-neck obstruction; D50.9 Iron deficiency anemia, unspecified; R35.0 Frequency of micturition; R39.11 Hesitancy of micturition; Z87.891 Personal history of nicotine dependence
CPT/HCPCS: 73560; 76705; 76775; 80048; 80061; 80076; 82272; 82310; 82607; 82747; 82810; 82948; 83010; 83540; 83550; 83615; 83735; 83880; 84100; 84443; 84466; 84484; 85025; 85027; 86703; 86705; 86803; 86850; 86880; 86900; 86901; 87340; 93005; 93306; 93458; 94150; C1769; C1776; C1893; C9290; J0131; J0610; J0690; J0735; J1100; J1580; J1644; J1650; J1815; J1885; J2250; J2370; J2405; J2710; J2795; J3010; J3370; J3475; J7030; J7050; J7120; Q9967